=== PATIENT | female | born 1960 | race Caucasian/White ===

== ENCOUNTER → 2021-09-03 13:07 | Outpatient (CLI) | payer OTHER, SELFPAY ==
--- NOTE | ~2021-09-03 | DEXA_ITS ---
Bone Density Report Name: Maria G Pugh Age: 61 Sex: Female Ethnicity: White Date of : 1960 Indication: postmenopausal; screening for osteoporosis; height loss; Referring Provider: David, Yumiko Cordero Study: Bone densitometry was performed. Exam Date: September 03, 2021 Accession number: [id number] Bone Density: Region BMD T-score Z-score Classification AP Spine (L1-L4) 1.306 2.4 4.0 Normal Femoral Neck (Left) 0.672 -1.6 -0.2 Osteopenia Total Hip (Left) 0.875 -0.5 0.6 Normal World Health Organization criteria for BMD impression classify patients as: Normal (T-score at or above -1.0), Osteopenia (T-score between -1.0 and -2.5), or Osteoporosis (T-score at or below -2.5). 10-year Fracture Risk(1): Major Osteoporotic Fracture 8.1% Hip Fracture 0.8% Reported Risk Factors: [place] (), Neck BMD=0.672, BMI=34.3 (1) FRAX(R) Version 3.08. Fracture probability calculated for an untreated patient. Fracture probability may be lower if the patient has received treatment. Previous Exams: Region Exam Age BMD T-score BMD Change BMD Change Date g/cm2 vs Baseline vs Previous AP Spine(L1-L4) 09/03/2021 61 1.306 2.4 0.149* 0.149* 12/28/2010 50 1.157 1.0 Total Hip(Left) 09/03/2021 61 0.875 -0.5 -0.117* -0.117* 12/28/2010 50 0.992 0.4 *Denotes significance at 95% confidence level, LSC for AP Spine = 0.022 g/cm2, LSC for Total Hip = 0.027 g/cm2 Clinical Information Provided by Patient: Has used the following medications: Vitamin D Patient maximum height was 62 No regular weight bearing exercise Drinks caffeinated beverages Onset of menses at age 11 Number of children 1 Impression: The patient has low bone mass, based on the Left Femoral Neck T-score. The patient has an estimated ten-year risk of hip fracture of 0.8% and an estimated ten-year risk of major fracture of 8.1%, based on the WHO FRAX algorithm. The BMD for the Total Hip(Left) decreased, changing by -0.117 since the last DXA exam. Discussion: BONE DENSITY IS LOW AT ONE OR MORE SKELETAL SITES. This patient's lowest T-score is low at one or more skeletal sites. It meets the World Health Organization's (WHO) criteria for ?low bone mass? (T-score between -1.0 and -2.5). The patient's 10-year risk of fracture as calculated by FRAX is less than the threshold where pharmacological therapy is recommended by the National Osteoporosis Foundation (NOF). However, all treatment decisions require clinical judgment and
--- NOTE | ~2021-09-03 | MM_ITS ---
EXAMINATION: MM screening [facility] HISTORY: Screening TECHNIQUE: Craniocaudal and mediolateral oblique 3-D tomosynthesis images were obtained and synthetic 2-D images were generated. CAD analysis was submitted and interpreted. COMPARISON: Comparison to multiple prior studies sequentially, with oldest reviewed study dated 01/06. BREAST PARENCHYMAL COMPOSITION: There are scattered areas of fibroglandular density. FINDINGS: There is no evidence of suspicious mass, calcification, or architectural distortion to sugg est malignancy in either breast. There has been no suspicious interval change. IMPRESSION: 1. No mammographic evidence of malignancy. 2. Recommend routine screening mammography in one year. BI-RADS Category 1: Negative Reviewed, dictated and finalized at location A.
== END ==
PROVIDERS: PCP Family Medicine; Visit Provider Nurse Practitioner Obstetrics & Gynecology
DX: Z12.31 Encounter for screening mammogram for malignant neoplasm of breast (principal); M85.852 Other specified disorders of bone density and structure, left thigh
CPT/HCPCS: 77063; 77067; 77080

== ENCOUNTER → 2022-12-20 07:14 | Outpatient (CLI) | payer OTHER, SELFPAY ==
--- NOTE | ~2022-12-20 | MM_ITS ---
EXAMINATION: MM screening [facility] BI w kim HISTORY: Screening TECHNIQUE: Craniocaudal and mediolateral oblique 3-D tomosynthesis images were obtained and synthetic 2-D images were generated. CAD analysis was submitted and interpreted. COMPARISON: Comparison to multiple prior studies sequentially, with oldest reviewed study dated 01/06. BREAST PARENCHYMAL COMPOSITION: There are scattered areas of fibroglandular density. FINDINGS: There is no evidence of suspicious mass, calcification, or architectural distortion to sugg est malignancy in either breast. There has been no suspicious interval change. IMPRESSION: 1. No mammographic evidence of malignancy. 2. Recommend routine screening mammography in one year. BI-RADS Category 1: Negative Reviewed, dictated and finalized at location A. OR PEOPLESOFT DEVELOPER
== END ==
PROVIDERS: PCP Family Medicine; Visit Provider Nurse Practitioner Obstetrics & Gynecology
DX: Z12.31 Encounter for screening mammogram for malignant neoplasm of breast (principal)
CPT/HCPCS: 77063; 77067

== ENCOUNTER 2024-01-31 15:48 | Emergency (ER) | payer OTHER, SELFPAY ==
--- NOTE | ~2024-01-31 | XR_ITS ---
EXAMINATION: XR ribs LT 2V DATE: 01/31/2024 16:52 INDICATION: Low left anterior rib pain. Fall. TECHNIQUE: 2 views of the left ribs on 3 radiographs were obtained. COMPARISON: None. FINDINGS: There is no left-sided pneumonia, pleural effusion, or pneumothorax. The heart size is norm al. There is a moderate-sized hiatal hernia. IMPRESSION: 1. No rib fracture. 2. Moderate-sized hiatal hernia. Reviewed, dictated and finalized at location E. E CLERK
[2024-01-31 16:03] VITALS: BP 158/87; PULSE 72; RESP 16; TEMP 36.3; O2SAT 98
--- NOTE | 2024-01-31 16:30 | ED.GENADULT ---
HPI - General Adult General Chief complaint: Fall Stated complaint: front left side pain Time Seen by Provider: 01/31/24 16:28 Source: patient Mode of arrival: ambulatory Limitations: no limitations History of Present Illness HPI narrative: 63-year-old female presents with concern for left lower rib pain. Reports on Friday she was caring something at the store when she fell causing pain. Reports she has been using ice and ibuprofen, reports she was walking today and had a sharper pain. She reports initially she had swelling in that area, but is no longer swollen. She reports pain worsens with coughing, deep breathing. She denies vomiting, diarrhea, nausea MD complaint: Rib pain Related Data Home Medications Medication Instructions Recorded Confirmed Saccharomyces boulardii 250 mg 250 mg PO BID 04/16/23 01/31/24 capsule (Digest Probiotic (S.boulardii)) calcium carbonate 600 mg-vitamin 1 cap PO 04/16/23 D3 12.5 mcg (500 unit) capsule (Calcium 600 with Vitamin D3) omega 5-lik-wcu-fish oil 60 mg-90 1 cap PO DAILY 04/16/23 01/31/24 mg-500 mg capsule (Fish Oil) vitamin E (dl, acetate) 90 mg (200 90 mg PO DAILY 04/16/23 01/31/24 unit) capsule alprazolam 0.25 mg tablet 0.25 mg PO HS 01/31/24 01/31/24 metoprolol succinate 25 mg 25 mg PO DAILY 01/31/24 01/31/24 tablet,extended release 24 hr Allergies Allergy/AdvReac Type Severity Reaction Status Date / Time No Known Allergies Allergy Mild Verified 01/31/24 15:54 Review of Systems Review of Systems: CONSTITUTIONAL: Denies malaise, chills, sweats, or fever. CARDIOVASCULAR: Denies chest pain, palpitations, or edema. RESPIRATORY: Denies cough or dyspnea. Reports right rib pain GASTROINTESTINAL: Denies abdominal pain, nausea, vomiting, diarrhea, bloody, or mucous stools. GENITOURINARY: Denies dysuria or hematuria. SKIN: Denies rash or itching, bruising. MUSCULOSKELETAL: Denies back pain, joint pain, or myalgia. All systems reviewed & are unremarkable except as noted in HPI and below PMFSH Past Medical History Medical History Anxiety Hypertension Migraine Family History Family History (Updated 04/16/23 @ 09:39 by Tamar Lockhart CMA) Mother Heart disease Diabetes mellitus Father No problems noted. Social History Social History (Updated 04/16/23 @ 09:48 by Tamar Lockhart CMA) Smoking status: Never smoker Second hand tobacco smoke exposure: No Alcohol intake: current Drinks per week: 2 Substance use: never Substance use type: does not use Lack of Transportation: No Lack of Food: Never True Current Housing: I Have Housing Concerned About Future Housing: No Difficulty Paying Gas/Electric Bills: No Difficulty Paying for Meds: No Currently Unemployed: No Education: High School Diploma/GED Difficulty w/ Childcare or Family Care: No Comments At time of signature, agree with nursing past medical, surgical, social and family history. There is no relevant family history pertinent to the presenting complaint Exam Narrative: GENERAL: Well-appearing, well-nourished, and in no acute distress. HEAD: Normocephalic, atraumatic. EYES: PERRLA, sclera clear, ENT: Nares clear. Mucous membranes moist. NECK: Supple. CHEST: No respiratory distress. Clear to auscultation. No bony deformities, no asymmetry. Speaks in full sentences. Left anterior rib pain HEART: Regular rate and rhythm. No murmur heard. Normal peripheral pulses. ABDOMEN: Soft, nontender, nondistended, normal active bowel sounds, no palpable masses. EXTREMITIES: Normal range of motion. No edema. Normal strength and sensation. SKIN: Warm, dry, no visible rash. NEURO: Alert and oriented x3. PSYCH: Normal mood and affect Course Course Emergency Course: Patient is aware of diagnosis, understands and agrees to treatment plan. Anticipatory guidance g
== END 2024-01-31 17:21 | disposition home or self-care (01) ==
PROVIDERS: Emergency Provider Nurse Practitioner; PCP Internal Medicine
DX: R07.81 Pleurodynia (principal); I10 Essential (primary) hypertension; F41.9 Anxiety disorder, unspecified
CPT/HCPCS: 71100; 99213; G0463

== ENCOUNTER 2024-10-27 12:20 | Outpatient (CLI) | payer MEDICARE, OTHER, SELFPAY ==
--- NOTE | ~2024-10-27 | MM_ITS ---
EXAMINATION: MM screening [facility] BI w kim HISTORY: Screening TECHNIQUE: Craniocaudal and mediolateral oblique 3-D tomosynthesis images were obtained and synthetic 2-D images were generated. CAD analysis was submitted and interpreted. COMPARISON: Comparison to multiple prior studies sequentially, with oldest reviewed study dated 03/2015. BREAST PARENCHYMAL COMPOSITION: Not Dense: The breasts are almost entirely fatty. FINDINGS: There is no evidence of suspicious mass, calcification, or architectural distortion to sugg est malignancy in either breast. There has been no suspicious interval change. IMPRESSION: 1. No mammographic evidence of malignancy. 2. Recommend routine screening mammography in one year. BI-RADS Category 1: Negative Reviewed, dictated and finalized at location B. FIRER
== END 2024-10-27 12:21 | disposition home or self-care (01) ==
LOC: MICIMG 12:22
PROVIDERS: PCP Obstetrics & Gynecology; Visit Provider Obstetrics & Gynecology
DX: Z12.31 Encounter for screening mammogram for malignant neoplasm of breast (principal)
CPT/HCPCS: 77063; 77067

== ENCOUNTER 2025-01-12 00:59 | Day surgery (SDC) | payer MEDICARE, OTHER, SELFPAY ==
[2025-01-04 15:25] VITALS: BMI 33.0
--- OUTSIDE RECORDS SUMMARY | 2025-01-12 01:01 | XMS_ITS ---
Author Organization [facility] Address [address] [place], [place] [id number] Care Team Providers Care Circular Saw Operator Name Role Phone XAIVER LOCKETT Unavailable [phone] Kimmy Lara Unavailable Unavailable AARON IVEY Unavailable [phone] REASON FOR VISIT cortisone shot l ft Medications Medication SIG (Take, Route, Frequency, Duration) Notes Start Date End Date Status Medrol Dosepak ORAL Medrol DosepakOr iginal MedicationMedrol Dosepak *Reorder from [facility] for eRx and Interaction Alerts* 04/24/2020 Active sumatriptan 100 MG Oral Tablet ORAL sumatriptan 100 MG Oral TabletOriginal Medicationsumatriptan 100 MG Oral Tablet *Reorder from [facility] for eRx and Interaction Alerts* 04/24/2020 Active Cephalexin 500 MG 1 capsule Orally three times a day for 7 days Active ALPRAZolam 0.25 MG Oral Tablet ORAL alprazolam 0.25 MG Oral TabletOriginal Medicationalprazolam 0.25 MG Oral Tablet *Reorder from [facility] for eRx and Interaction Alerts* 04/24/2020 Active Metoprolol Tartrate 25 MG Oral Tablet ORAL metoprolol tartrate 25 MG Oral TabletOriginal Medicationmetoprolol tartrate 25 MG Oral Tablet *Reorder from [facility] for eRx and Interaction Alerts* 04/24/2020 Active Vital Signs Height 61.00 in 02/09/2024 Weight 180 lbs 02/09/2024 BMI 34.01 kg/m2 02/09/2024 Height-cm 154.94 cm 02/09/2024 Weight-kg 81.65 kg 02/09/2024 Encounters Encounter Location Date Provider Diagnosis [facility] [place] [address] [facility] [address] [place], [place] [id number] 02/09/2024 AARON IVEY Localized edema R60.0 ; Primary osteoarthritis, left ankle and foot M19.072 ; Pain in left ankle and joints of left foot M25.572 ; Flat foot [pes planus] (acquired), left foot M21.42 and Left foot pain M79.672 Assessments Encounter Date Diagnosis (ICD Code) Assessment Notes Treatment Notes Treatment Clinical Notes Section Notes 02/09/2024 Localized edema (ICD-10 - R60.0) 02/09/2024 Primary osteoarthritis , left ankle and foot (ICD-10 - M19.072) Arthritis, Osteo: I discussed anti-inflammatory treatment options and various means of immobilization with the patient. I educated the patient on icing and stretching, supportive shoegear, and the use of orthotic devices and bracing. Following skin prep, a total of 3 ccs of a 1.5-1-0.5 mix of 1% lidocaine plain, dexamethasone sodium phosphate and kenalog was injected into the patients left sinus tarsi. 02/09/2024 Pain in left ankle and joints of left foot (ICD-10 - M25.572) 02/09/2024 Flat foot [pes planus] (acquired), left foot (ICD-10 - M21.42) Patient educated on etiology and treatment options for flexible flat foot deformity. Educated patient on how a flexible flat foot deformity can in turn result in pathology such as hammer toe, bunions, equinus, neuromas. Recommend use of custom foot inserts to help alleviate plantar peak pressures and accomodate for digital deformity to feet. 02/09/2024 Left foot pain (ICD-10 - M79.672) Plan Of Treatment Treatment Notes Assessment Notes Primary osteoarthritis, left ankle and foot Arthritis, Osteo: I discussed anti-inflammatory treatment options and various means of immobilization with the patient. I educated the patient on icing and stretching, supportive shoegear, and the use of orthotic devices and bracing. Following skin prep, a total of 3 ccs of a 1.5-1-0.5 mix of 1% lidocaine plain, dexamethasone sodium phosphate and kenalog was injected into the patients left sinus tarsi. Flat foot [pes planus] (acqu ired), left foot Patient educated on etiology and treatme nt options for flexible flat foot deformity. Educated patient on how a flexible flat foot deformity can in turn result in pathology such as hammer toe, bunions, equinus, neuromas. Recommend use of custom foot inserts to help alleviate plantar peak pressures and accomodate for digital deformity to feet. Next Appt Details Follow Up: prn, Reason: Progress Notes * DEBBI PÉREZDOB: [birth year] (63 yo F)Acc No.[id number]:02/09/2024 Patient: DEBBI MADRIGAL Provider: Carlos IVEY :1960 A ge:63 Y S ex:Female Date:02/09/2024 Address:[address] [place] [address] Subjective: * Chief Complaints: * 1 . Cortisone shot l ft. * HPI: H PI: New Complaint E stablished patient presents with a new complaint. P atient complains of an issue to left foot pain. Patient states the pain is on the lateral side of the ankle. Patient has been treated for this in the past. Patient states she would like an injection to help with the pain. D uration of problem is 5 months. P atient denies any injury. M A:SS. * ROS: G eneral / Constitutional: Patient denies c hills, fever, weakness, night sweats. M usculoskeletal: Patient denies c hildhood foot problems, weakness. P atient complains of f mehnaz arch, joint pain, pain with walking and working, orthotic use. ? P eripheral Vascular: Patient denies u lceration of feet, cold extremities. ? S kin: Patient denies u lcerations, discoloration. ? N eurologic: Patient denies b alance difficulty, confusion, difficulty speaking, dizziness. * Medical History: * Family History: F ather: PRN - Father: . M other: PRN - Mother: . * Medications: T aking ALPRAZolam 0.25 MG Oral Tablet ORAL , Notes to Pharmacist: alprazolam 0.25 MG Oral TabletOriginal Medicationalprazolam 0.25 MG Oral Tablet *Reorder from [facility] for eRx and Interaction Alerts*, Taking Metoprolol Tartrate 25 MG Oral Tablet ORAL , Notes to Pharmacist: metoprolol tartrate 25 MG Oral TabletOriginal Medicationmetoprolol tartrate 25 MG Oral Tablet *Reorder from [facility] for eRx and Interaction Alerts*, Taking Medrol Dosepak ORAL , Notes to Pharmacist: Medrol DosepakOriginal MedicationMedrol Dosepak *Reorder from [facility] for eRx and Interaction Alerts*, Taking sumatriptan 100 MG Oral Tablet ORAL , Notes to Pharmacist: sumatriptan 100 MG Oral TabletOriginal Medicationsumatriptan 100 MG Oral Tablet *Reorder from [facility] for eRx and Interaction Alerts*, Taking Cephalexin 500 MG Capsule 1 capsule Orally three times a day Objective: * Vitals: W t:180lbs, Wt-k.65 kg, Ht: 61.00 in, Ht-cm: 154.94 cm, BMI:34.01Index, Body Surface Area: 1.87. * Examination: P hysical Examination: V ascular: Dorsalis Pedis pulse 2/4 left foot Posterior Tibial pulse 2/4 left foot Dorsalis Pedis pulse 2/4 right foot Posterior Tibial pulse 2/4 right foot, Capillary Refill Time is noted to be less than 3 secs to ten digits, temperature gradient is warm to cool to bilateral lower extremity and pedal hair present, non pitting edema noted over lateral aspect of ankle joint left Dermatologic: there are no open lesions, no signs of active clinical infection, no erythema noted, no ecchymoses, nails are at hygienic length during todays visit Neurology: protective sensation intact to light touch bilateral digits one through five, vibratory sensation intact to first metatarsophalangeal joint bilaterally Musculoskeletal: pain to palpation sinus tarsi left foot, mild pain to palpation ATFL left ankle, no pain along anterior ankle joint line, no pain noted to styloid process fifth metatarsal left foot, no pain along course of peroneal tendons left ankle, no pain with anterior drawer test or talar tilt test left ankle. Assessment: * Assessment: 1. L ocalized edema - R60.0 (Primary) 2 . P rimary osteoarthritis, left ankle and foot - M19.072 3 . P ain in left ankle and joints of left foot - M25.572 4 . F lat foot [pes planus] (acquired), left foot - M21.42 5 . L eft foot pain - M79.672 Plan: * Treatment: 2. F lat foot [pes planus] (acquired), left foot Notes: Patient educated on etiology and treatment options for flexible flat foot deformity. Educated patient on how a flexible flat foot deformity can in turn result in pathology such as hammer toe, bunions, equinus, neuromas. Recommend use of custom foot inserts to help alleviate plantar peak pressures and accomodate for digital deformity to feet. * Procedure Codes: 2 0605 DRAIN/INJECT, JOINT/BURSA, Modifiers: LT * Follow Up: p rn * Billing Information: * Visit Code: 16146 Office Visit, Est Pt., Level 3. Modifiers: 25 * Procedure Codes: 26855 DRAIN/INJECT, JOINT/BURSA. Modifiers: LT * Sign off status: Completed true * Provider: Carlos IVEY Date: 0 02/09/2024 Generated for Kaushal calvert/Mary/Erin on: 0 01/12/2025 01:01 AM REGIONAL ECONOMIST History and Physical Notes * HPI (History of Present Illness) Category Sub-Category Detail Notes Category Not es HPI New Complaint Established hernandez ent presents with a new complaint.Patient complains of an issue to left foot pain. Patient states the pain is on the lateral side of the ankle. Patient has been treated for this in the past. Patient states she would like an injection to help with the pain. Duration of problem is 5 months. Patient denies any injury. MA:SS Examination Category Sub-Category Detail Notes Category Not es Physical Examination Vascular: Dorsalis Pedis pulse 2/4 left foot Posterior Tibial pulse 2/4 left foot Dorsalis Pedis pulse 2/4 right foot Posterior Tibial pulse 2/4 right foot, Capillary Refill Time is noted to be less than 3 secs to ten digits, temperature gradient is warm to cool to bilateral lower extremity and pedal hair present, non pitting edema noted over lateral aspect of ankle joint left Dermatologic: there are no open lesions, no signs of active clinical infection, no erythema noted, no ecchymoses, nails are at hygienic length during todays visit Neurology: protective sensation intact to light touch bilateral digits one through five, vibratory sensation intact to first metatarsophalangeal joint bilaterally Musculoskeletal: pain to palpation sinus tarsi left foot, mild pain to palpation ATFL left ankle, no pain along anterior ankle joint line, no pain noted to styloid process fifth metatarsal left foot, no pain along course of peroneal tendons left ankle, no pain with anterior drawer test or talar tilt test left ankle
--- OUTSIDE RECORDS SUMMARY | 2025-01-12 01:02 | XMS_ITS ---
Author Organization [facility] Address [address] [place], [place] [id number] Care Team Providers Care Abattoir Manager Name Role Phone XAVIER LOCKETT Unavailable [phone] Kimmy Lara Unavailable Unavailable Encounters Encounter Location Date Provider Diagnosis [facility] [address] [place], [place] [id number] 02/04/2024 XAVIER LOCKETT Plan Of Treatment No Information Progress Notes * DEBBI PÉREZDOB: [birth year] (63 yo F)Acc No.[id number]:02/04/2024 Patient: DEBBI MADRIGAL :1960 A ge:63 Y S ex:Female Address:[address] [place] [address], [address] * true * Date: Generated for Kaushal calvert/Mary/eTmarcinsmitting on: 0 01/12/2025 01:02 AM DIRECTOR OF CLINICAL SERVICES
--- OUTSIDE RECORDS SUMMARY | 2025-01-12 01:02 | XMS_ITS | Encounter Summary ---
Author Organization [facility] Address [address] [place] [address] Care Team Providers Care Manager Mutual Fund Name Role Phone Kimmy Lara MD Primary Care Provider [phone] Encounter Details Date Type Department Care Team (Late st Contact Info) Description 04/15/2024 Lab Requisition [facility] - DermPath Lab [address] [place] [address] Iris Stover DO [address] [facility] [address] [place] [address] Social History Tobacco Use Types Packs/Day Years Used Date Smoking Tobacco: Never Assessed Sex and Gender Information Value Date Recorded Sex Assigned at Not on file Gender Identity Not on file Sexual Orientation Not on file documented as of this encounter Plan of Treatment Not on file documented as of this encounter Procedures Procedure Name Priority Date/Time Associated Diagnosis Comments DERMATOPATHOLOGY Routine 04/15/2024 8:52 AM CDT documented in this encounter Results * DERMATOPATHOLOGY (04/15/2024 8:52 AM CDT) Case Report Dermatopathology Report Case: [id number] Authorizing Provider: Iris Stover DO Collected: 04/15/2024 08:52 AM Ordering Location: [facility] - Received: 04/16/2024 10:37 AM DermPath Lab Pathologist: Mayda Rosales MD Specimen: Skin, left forearm 11:55 AM CDT DERMATOPATHOLOGY LABORATORY Final Diagnosis Specimen A. SKIN, left forearm: NON-INFLAMMATORY PURPURA (D69.2) (see microscopic description and comment) 11:55 AM T DERMATOPATHOLOGY LABORATORY Clinical History R/O NMSC 11:55 AM T DERMATOPATHOLOGY LABORATORY Gross Description Specimen A: Received is one formalin filled container labeled with the patient's name and designated left forearm. The specimen consists of a shave biopsy measuring 7x6x1 mm. Jar 0. 11:55 AM T DERMATOPATHOLOGY LABORATORY Microscopic Description Specimen A. SKIN, left forearm: Sections show extravasation of red blood cells into the dermis from small cutaneous vessels. No associated inflammation is present in the vessel shafer however an associated neutrophilic infiltrate is present within the dermis.. COMMENT: These histological findings are consistent with a non-inflammatory purpura, which include idiopathic thrombocytopenic purpura, senile purpura, psychogenic purpura, traumatic purpura, and drug purpuras. Clinicopathologic correlation is recommended. 11:55 AM T DERMATOPATHOLOGY LABORATORY Disclaimer An external and internal positive and negative controls are appropriate for the histochemical, immunohistochemical and immunofluorescence stain(s) in this case (if any), except where stated explicitly. The performance characteristics of the stain(s) cited in this report were developed and its performance characteristic determined by the Dermatopathology Laboratory at [facility], directed by Dr. Eva Hess. These tests need not be, and therefore are not, approved by the [place] Food and Drug Administration. The tests are used for clinical purposes. Billing Codes Specimen Charges Stain Charges 85543 1 11:55 AM CDT DERMATOPATHOLOGY LABORATORY Embedded Images 11:55 AM CDT DERMATOPATHOLOGY LABORATORY Pathology/Cytolo gy TISSUE SPECIMEN FROM SKIN / Unknown 04/15/2024 8:52 AM CDT 04/16/2024 10:37 AM CDT Iris Stover DO LAB - PATHOLOGY/C YTOLOGY ORDERABLES DERMATOPATHOLOGY LABORATORY [facility] - Department of Dermatology [address] [phone] documented in this encounter Visit Diagnoses Not on filedocumented in this encounter Care Teams Manager Mutual Fund Relationship Specialty Start Date End Date Kimmy Lara MD [address] [place] [address] PCP - General 01/22/21 documented as of this encounter
--- OUTSIDE RECORDS SUMMARY | 2025-01-12 01:02 | XMS_ITS | Clinical Summary ---
Author Organization [facility] Address [address] [place] [address] Care Team Providers Care Postal Transportation Clerk Name Role Phone Kimmy Lara MD Primary Care Provider [phone] Source Comments [facility],non-owned Affiliates and Associated Physician Practices is amultiple site organization consisting of ambulatory clinics and hospital sitesin [place], [place], [place] and [place]. This disclosure is being madepursuant to the Care Everywhere program and may not contain all information available regarding this patient. Last updated 18.[facility] Social History Tobacco Use Types Packs/Day Years Used Date Smoking Tobacco: Never Assessed Sex and Gender Information Value Date Recorded Sex Assigned at Not on file Gender Identity Not on file Sexual Orientation Not on file Plan of Treatment Health Maintenance Due Date Last Done Comments BONE DENSITY TESTING 1958 COLOGUARD (AGES 45-75) - COL ON CA SCREENING 1958 COLON MONITORING 1958 COLONOSCOPY - COLON CA SCREENING 1958 CT COLONOGRAPHY - COLON CA SCREENING 1958 Colorectal Cancer Screening 1958 FIT - COLON CA SCREENING 1958 FLEX SIG - COLON CA SCREENING 1958 LIPID TESTING 1958 MAMMOGRAM 1958 HEPATITIS C SCREENING 05/15/1976 DTAP/TDAP/TD VACCINES (1 - Tdap) 1977 PNEUMOCOCCAL VACCINE 50+ (1 of 1 - PCV) 2008 ZOSTER VACCINE (1 of 2) 2008 COVID-19 VACCINE (1 - 2023-2 5 season) 2024 INFLUENZA VACCINE (#1) 2024 DEPRESSION SCREENING 11/24/2024 Respiratory Syncytial Virus (RSV) Vaccine Pt: or over 60 yrs (1 - 1-dose 75+ series) 2033 HEPATITIS B VACCINE Aged Out No longe r eligible based on patient's age to complete this topic HIB VACCINE Aged Out No longer eligi ble based on patient's age to complete this topic HPV VACCINE Aged Out No longer eligi ble based on patient's age to complete this topic MENINGOCOCCAL (Group B) VACCINE Aged Out No longer eligible based on patient's age to complete this topic MENINGOCOCCAL VACCINE Aged Out No maribel davy eligible based on patient's age to complete this topic Care Teams Postal Transportation Clerk Relationship Specialty Start Date End Date Kimmy Lara MD [address] [place] [address] PCP - General 01/22/21
--- OUTSIDE RECORDS SUMMARY | 2025-01-12 01:02 | XMS_ITS | Clinical Summary ---
Author Organization [facility] Care Team Providers Care Biology Instructor Name Role Phone Unavailable Primary Care Provider Unavailabl e Social History Tobacco Use Types Packs/Day Years Used Date Smoking Tobacco: Never Assessed Comments Unknown Sex and Gender Information Value Date Recorded Sex Assigned at Not on file Legal Sex Female 12:30 AM CDT Gender Identity Not on file Sexual Orientation Not on file Plan of Treatment Not on file
--- OUTSIDE RECORDS SUMMARY | 2025-01-12 01:02 | XMS_ITS | Continuity of Care Document ---
Author Organization [facility] [place] Address [address] [place] [address] Phone Care Team Providers Care Fuse Spooler Name Role Phone Diamond Acosta MD Unavailable Unavailable Allergies, Adverse Reactions, Alerts Substance Reaction Status Criticality No Known Allergies Active No Inform ation Medications Medication Instructions Dosage Effective Dates (start - stop) Status Comments ALPRAZOLAM 0.25MG TABLETS TAKE 1 TABLET BY MOUTH AT BEDTIME NEEDED FOR INSOMNIA - Active metoprolol succinate ER 25 mg tablet,extended release 24 hr take 1 tablet by oral route every day 25 MG - Active sumatriptan 100 mg tablet take 1 tablet by oral route after onset of migraine; may repeat after 2 hours if headache returns,not to exceed 200mg in 24hrs as needed 100 MG - Active calcium citrate 315 mg-vitamin D3 5 mcg (200 unit) tablet take 1 tablet by oral route every day 1 tablet - Active Probiotic 15 billion cell capsule take 1 capsule daily - Active turmeric 400 mg capsule take 1 capsule daily - Active biotin 2,500 mcg capsule take 1 capsule daily - Active Prilosec OTC 20 mg tablet,delayed release take 1 tablet daily - Active Vitamin B-12 1,000 mcg tablet take 1 tablet by oral route every day 1 tablet - Active vitamin E 268 mg (400 unit) capsule take 1 capsule by oral route 2-3 times per week - Active Fiber-Caps (psyllium husk) 0.52 gram capsule take 1-2 capsules daily - Active Fruit and Vegetable Daily 5 mg-6 mg-150 mg capsule take 1 capsule daily - Active Procedures Procedure Date Pt inelig neg scrn depres FALL RISK ASSESSMENT DOC'D PRES/ABSN URINE INCON ASSESS EKG (ELECTROCARDIOGRAM) INIT PREVENT PHYS EXAM; LIMITED TO NEW B ENEFICIARY SYST BP GE 130 - 139MM HG DIAST BP 80-89 MM HG ELECTROCARDIOGRAM ECG WITH 12 LEADS INTE RP AND RPT CBC, INC PLATELETS AND DIFFERENTIAL COMPREHEN METABOLIC PANEL CMP 5 LIPID PANEL ROUTINE VENIPUNCTURE TN Pt inelig neg scrn depres OFFICE SIITS-HEC-XRXTYESI Visit Complexity Inherent To E/M 2023 SYST BP LT 130 MM HG DIAST BP < 80 MM HG CBC, INC PLATELETS AND DIFFERENTIAL COMPREHEN METABOLIC PANEL CMP 4 LIPID PANEL ROUTINE VENIPUNCTURE TN PREVENTATIVE-NEW: 65& OVER IMMUN ADMIN (INC PERCUTANEOUS) SINGLE, F IRST INJ Pneumococcal Conjugate Vaccine (PCV20) J Advance Directives Directive Yes / No Effective Date File Name Other Directive No N/A N/A WARNING:The information contained in this section is historical and is provided for information only and does not constitute a legal document or any assurance that the information is still accurate. Please verify the information with the caputo of the legal document before using it for clinical purposes. Encounters Encounter Description Practice Location Reason(s) For Visit Diagnoses Date Provider Providers Copied on Encounter [facility], [address], [place], [place], [address] , tel: [phone] [facility] Medicare preventive (chief complaint)C hronic Conditions (chief complaint) Body mass index [BMI] 33.0-33.9, adultEncntr for general adult medical exam w/o abnormal findingsMigraine without status migrainosus, not intractable, unspecified migraine typeBenign essential hypertension [address]. [address] [place], [place], [address] , [place]. tel: [phone] Referring Provider: Diamond Day, [address] [place], [address] . tel:[phone] [facility], [address], [place], [place], [address] , tel: [phone] [facility] No Information [address] J[address] [place] [address], [id number] , . tel: [phone] Referring Provider: Diamond Day, [address] [place], [address] . tel:[phone] [facility], [address], [place], [place], [address] , [place] tel: [phone] [facility] Benign essential hypertensionHyperl ipidemia LDL goal <100 [address], [place], [address] , [place]. tel: [phone] Referring Provider: Diamond Day, [address] [place], [address] . tel:[phone] [facility], [address], [place], [place], [address] , tel: [phone] [facility] Encounter for screening colonoscopy [address]. [address], [address] , [place]. tel: [phone] [facility], [address], [place], [place], [address] , tel: [phone] [facility] [employer] [facility] No Information [address]. [address], [place], [address] , [place]. tel: [phone] OFFICE [id number]-Y[facility], [address], [place], [place], [address] , [place] tel: [phone] [facility] Chronic Conditions (chief complaint) Body mass index [BMI] 32.0-32.9, adultMigraine without status migrainosus, not intractable, unspecified migraine typePrimary insomniaBenign essential hypertensionTinnit us, bilateral [address]. [address] [place], [place], [address] , [place]. tel: [phone] Referring Provider: Diamond Day, [address] [place], [address] . tel:[phone] [facility] [employer] [place], [address], [place], [place], [address] , [place] tel: [phone] [facility] No Information [address], [address] , [place]. tel: [phone] [facility], [address], [place], [place], [address] , [place] tel: [phone] [facility] No Information [address]. [address], [id number] , [place]. tel: [phone] Referring Provider: Diamond Day, [address] [place], [address] . tel:[phone] [facility] [place], [address], [place], [place], [address] , [place] tel: [phone] [facility] Benign essential hypertensionRoutin e medical exam [address]. [address], [place], [address] , . tel:[phone] Referring Provider: Diamond Day, [address] [place], [address] . tel:[phone] PREVENTATIVE -NEW: 65& OVER [facility], [address], [place], [place], [address] , [place] tel: [phone] [facility] pt (chief complaint) Body mass index [BMI] 32.0-32.9, adultRoutine medical examBenign essential hypertensionMigrai ne without status migrainosus, not intractable, unspecified migraine typePrimary insomniaColon cancer screening [address], [place], [address] , . tel: [phone] Referring Provider: Diamond Day, [address] [place], [address] . tel:[phone] Family History Family Member Type Diagnosis Age At Onset Father Problem Hypertension Mother Problem Kidney disease Sister Problem Hypertension Mother Problem Hypertension Father Problem Hearing loss Mother Problem Cancer, breast Father Problem Hypercholesterolemia Mother Problem Hypercholesterolemia Father Problem Cancer, colon Mother Problem Diabetes mellitus Immunizations Vaccine Date Status Comments Pneumococcal conjugate PCV20 administered Source: New Immunization Record Payers Payer name Insurance type Covered libertarian ID Authoriza timatt(s) [place]IC[place] [id number] [facility] [id number] [facility] [id number] Social History Type Description Quantity Date Captured Comments Alcohol Use Details beer & wine Caffeine Use Details Unknown Tobacco Use Status Current non-smoker Smoking Status Never smoker Non-Smoking Tobacco Use Details : No Details Available : No Details Available Sex Female Sexual Orientation Straight or heterosexual Gender Identity Female Vital Signs Date / Time: Height Weight BMI Pulse Rate Blood Pressure Temperature Respiratory Rate Body Surface Area Head Circumference Head Circ. Percentile Wt./Asif. Percentile BMI percentile Pulse Ox Inhaled Ox 2:28 PM 60.50 in 79.742 kg (175.80 lbs) 33.7 7 kg/m eter (2) 60 /min 132/86 mm[Hg] Chief Complaint And Reason For Visit From encounter dated '01/03/2025 14:30'. Medicare preventive (chief complaint). Description: A Health Risk Assessment has been performed andreviewed. The patient has not felt depressed and has had interest and pleasure doing things recently. Functional Status: (Functional status has not changed) on 01/03/2025. Cognitive Status: (Cognitive status has not changed) on 01/03/2025. The ''Up and Go'' test tookless than 30 seconds andthe patient does not need help with activities of daily living. The patientis not at risk for falls. The patient has not fallen in the last year. The fall(s) did not result in injury. The patient has smoke detectors in the home. The patient does not have carbon monoxide detectors in the home. Patient reports using a seatbelt in vehicles. Relevant history is positive for alcohol use. Relevant history is negative for tobacco use. Chronic Conditions (chief complaint). Description: *See Chronic Conditions HPI Reason For Referral Reason For Referral No Information Plan Of Treatment Date Type Action Status Goal Dietary manageme nt education, guidance, and counseling completed Goal Dietary manageme nt education, guidance, and counseling completed Goal Dietary manageme nt education, guidance, and counseling completed Referral Ordered: EKG (ELECTROCARDIOGRAM) ordered Referral Referred To: [address] [place], [phone] Ordered: DEXA of spine and hip ordered Referral Ordered: Ronn Weston MD -Gastroenterology (related to Encounter for screening colonoscopy) ordered Referral Referred To: Ronn Weston MD [address] [place], [phone] Ordered: Referrals: Gastroenterology. Ronn Weston MD. Evaluation/diagnostic/treatment - Level 3 ordered Referral Ordered: Ronn Melissa DO -Gastroenterology (related to Colon cancer screening) ordered Referral Referred To: Ronn Melissa DO [address] [place], [phone] Ordered: Referrals: Gastroenterology. Ronn Melissa DO. Evaluation/diagnostic/treatment - Level 3 ordered Appointment Maria G Pugh BOOKED Appointment Maria G Pugh BOOKED History Of Present Illness Encounter Date Complaint History Of Prese nt Illness Medicare preventive A Health Ris k Assessment has been performed and reviewed. The patient has not felt depressed and has had interest and pleasure doing things recently. Functional Status: (Functional status has not changed) on 01/03/2025. Cognitive Status: (Cognitive status has not changed) on 01/03/2025. The ''Up and Go'' test took less than 30 seconds andthe patient does not need help with activities of daily living. The patient is not at risk for falls. The patient has not fallen in the last year. The fall(s) did not result in injury. The patient has smoke detectors in the home. The patient does not have carbon monoxide detectors in the home. Patient reports using a seatbelt in vehicles. Relevant history is positive for alcohol use. Relevant history is negative for tobacco use. Chronic Conditions *See Chronic Conditions HPI Chronic Conditions *See Chronic Conditions HPI New pt Pt. here to get established. Due for mammogram and colonoscopy.Sees heater installer for pap smears.Has HTN with BP stable on metoprolol without SE's.Has migraines stable- takes imitrex as needed with improvement in headache pain,Has insomnia chronic and has taken xanax intermittently in the past which helps her fall asleep. Functional Status Date Functional Assessmen t No Information Instructions Date Instruction Additional Infor mation Continue metoprolol Related to B enign essential hypertension EKG done today as pa rt of Welcome to Medicare visit normalContinue yearly mammogramsDeXA hip and spine bone density study orderedtry to do some regular exercisecontinue pap smears with your marketing reps [facility] [place] your [facility]oscopy as scheduled later this monthfollow up in 1 year Related to Encntr for general adult medical exam w/o abnormal findings continue sumatriptan as needed R elated to Migraine without status migrainosus, not intractable, unspecified migraine type Immunizations Dietary management e ducation, guidance, and counseling Related to Body mass index (BMI) 33.0-33.9, adult continue sumatriptan as needed R elated to Migraine without status migrainosus, not intractable, unspecified migraine type continue low dose xa nax to take on rare occasions as needed Related to Primary insomnia Continue metoprolol Related to B enign essential hypertension Dietary management e ducation, guidance, and counseling Related to Body mass index (BMI) 32.0-32.9, adult recommend using over the counter Flonase 2 sprays per nostril dailyIf your symptoms do not improve after 1 to 2 months, let us know and we can refer you to an ENT or start on low dose amitriptyline at bedtime Related to Tinnitus, bilateral will send rx. for lo w dose xanax to take on rare occasions as needed Related to Primary insomnia Continue metoprolol Related to B enign essential hypertension continue sumatriptan as needed R elated to Migraine without status migrainosus, not intractable, unspecified migraine type Prevnar 20 given tod ayArethaule your screening mammogram you are due fortry to do some regular exercisecontinue pap smears with your gynecologistrefer to Dr. Melissa [facility] for colonoscopyfollow up in 6 months Related to Routine medical exam Dietary management e ducation, guidance, and counseling Related to Body mass index (BMI) 32.0-32.9, adult Immunizations Assessments Type Assessment Date assessment Body mass index (BMI) 33.0-33.9, adult assessment Encntr for general adult medical exam w/o abnormal findings assessment Migraine without sta tus migrainosus, not intractable, unspecified migraine type assessment Benign essential hypertension Mental Status Date Cognitive Assessment Orientation - Osc[place] ed to time, place, person, situation. Patient Care Teams Name Effective Dates (start - stop) Status Members No Information
--- OUTSIDE RECORDS SUMMARY | 2025-01-12 01:02 | XMS_ITS | Patient Health Summary ---
Author Organization [facility] Address [address] [place] [address] Care Team Providers Care Furnace Builder Name Role Phone Kimmy Lara MD Primary Care Provider [phone] Note from [facility],non-owned Affiliates and Associated Physician Practices is amultiple site organization consisting of ambulatory clinics and hospital sitesin [place] and [place]. This disclosure is being madepursuant to the Care Everywhere program and may not contain all information available regarding this patient. Last updated 18.[facility] Social History Tobacco Use Types Packs/Day Years Used Date Smoking Tobacco: Never Assessed Sex and Gender Information Value Date Recorded Sex Assigned at Not on file Gender Identity Not on file Sexual Orientation Not on file Procedures * DERMATOPATHOLOGY(Performed 04/15/2024) * DERMATOPATHOLOGY(Performed 08/06/2021) * DERMATOPATHOLOGY(Performed 02/12/2021) * DERMATOPATHOLOGY(Performed 01/22/2021) Results * DERMATOPATHOLOGY (04/15/2024 8:52 AM CDT) Only the most recent of4 resultswithin the time period is included. Case Report Dermatopathology Report Case: [id number] Authorizing Provider: Iris Stover DO Collected: 04/15/2024 08:52 AM Ordering Location: [facility] - Received: 04/16/2024 10:37 AM DermPath Lab [...] characteristic determined by the Dermatopathology Laboratory at [facility], directed by Dr. Eva Hess. These tests need not be, and therefore are not, approved by the [place] Food and Drug Administration. The tests are used for clinical purposes. Billing Codes Specimen Charges Stain Charges 96634 1 11:55 AM CDT DERMATOPATHOLOGY LABORATORY Embedded Images 11:55 AM CDT DERMATOPATHOLOGY LABORATORY Pathology/Cytolo gy TISSUE SPECIMEN FROM SKIN / Unknown 04/15/2024 8:52 AM CDT 04/16/2024 10:37 AM CDT Iris Stover DO LAB - PATHOLOGY/C YTOLOGY ORDERABLES DERMATOPATHOLOGY LABORATORY [facility] - Department of Dermatology [address] [phone] Care Teams Furnace Builder Relationship Specialty Start Date End Date Kimmy Lara MD [address] [place] [address] PCP - General 01/22/21
--- OUTSIDE RECORDS SUMMARY | 2025-01-12 01:02 | XMS_ITS | Referral Summary ---
Author Organization [facility] Address [address] [place] [address] Care Team Providers Care Director Of Campus Recreation Name Role Phone Kimmy Lara MD Primary Care Provider [phone] Source Comments [facility],non-owned Affiliates and Associated Physician Practices is amultiple site organization consisting of ambulatory clinics and hospital sitesin [place], [place], [place] and [place]. This disclosure is being madepursuant to the Care Everywhere program and may not contain all information available regarding this patient. Last updated 18.[facility] [employer] Social History Tobacco Use Types Packs/Day Years Used Date Smoking Tobacco: Never Assessed Sex and Gender Information Value Date Recorded Sex Assigned at Not on file Gender Identity Not on file Sexual Orientation Not on file Plan of Treatment Not on file Care Teams Director Of Campus Recreation Relationship Specialty Start Date End Date Kimmy Lara MD [address] [place] [address] PCP - General 01/22/21
--- OUTSIDE RECORDS SUMMARY | 2025-01-12 01:02 | XMS_ITS | Patient Health Record ---
Author Organization [facility] Address [address] [place], [place] [address] Care Team Providers Care General Dentist/Owner Name Role Phone XAVIER LOCKETT Unavailable [phone] Jose Laraa Unavailable Unavailable LILLYAARON BRAVO Unavailable [phone] Allergies No Known Allergies Reason For Referral No Information Medications Medication SIG (Take, Route, Frequency, Duration) Notes Start Date End Date Status Medrol Dosepak ORAL Medrol DosepakOr iginal MedicationMedrol Dosepak *Reorder from [employer] for eRx and Interaction Alerts* 04/24/2020 Active sumatriptan 100 MG Oral Tablet ORAL sumatriptan 100 MG Oral TabletOriginal Medicationsumatriptan 100 MG Oral Tablet *Reorder from [employer] for eRx and Interaction Alerts* 04/24/2020 Active Cephalexin 500 MG 1 capsule Orally three times a day for 7 days Active ALPRAZolam 0.25 MG Oral Tablet ORAL alprazolam 0.25 MG Oral TabletOriginal Medicationalprazolam 0.25 MG Oral Tablet *Reorder from [employer] for eRx and Interaction Alerts* 04/24/2020 Active Metoprolol Tartrate 25 MG Oral Tablet ORAL metoprolol tartrate 25 MG Oral TabletOriginal Medicationmetoprolol tartrate 25 MG Oral Tablet *Reorder from [employer] for eRx and Interaction Alerts* 04/24/2020 Active Immunizations Vaccine Route Administration Date Status Comme nts Influenza, high dose seasonal Unknown 09/17/2023 Admini stered Vital Signs Height-cm 154.94 cm 02/09/2024 Weight-kg 81.65 kg 02/09/2024 Height 61.00 in 02/09/2024 Weight 180 lbs 02/09/2024 BMI 34.01 kg/m2 02/09/2024 Encounters Encounter Location Date Provider Diagnosis [facility] [address] [place], [place] [id number] 02/09/2024 AARON IVEY Localized edema R60.0 ; Primary osteoarthritis, left ankle and foot M19.072 ; Pain in left ankle and joints of left foot M25.572 ; Flat foot [pes planus] (acquired), left foot M21.42 and Left foot pain M79.672 [facility] [address] [facility] [address] [place], [place] [id number] 02/04/2024 XAVIER LOCKETT Assessments Encounter Date Diagnosis (ICD Code) Assessment Notes Treatment Notes Treatment Clinical Notes Section Notes 02/09/2024 Primary osteoarthritis , left ankle and [...] into the patients left sinus tarsi. 02/09/2024 Localized edema (ICD-10 - R60.0) 02/09/2024 Pain in left ankle and joints [...] pain (ICD-10 - M79.672) Plan Of Treatment No Information Insurance Providers Payer Name Payer Address Payer Phone Subscriber Number Group Number Insured Name Patient Relationship to Insured Coverage Start Date Coverage End Date [facility] [address] [place] [phone] [id number] MOLLY PÉREZ Spouse - patient is the spouse of the insured
--- OUTSIDE RECORDS SUMMARY | 2025-01-12 01:02 | XMS_ITS | Referral Summary ---
Author Organization [facility] Orthopedic [facility] Address [address] [place] [phone] Care Team Providers Care Zoology Professor Name Role Phone Diamond Acosta MD Primary Care Provider + Encounters Date Type Department Care Team Description 01/06/2025 2:43 PM YOUTH WORKER - 01/06/2025 11:59 PM YOUTH WORKER Hospital Encounter [facility] ([facility]) [address] [place] [phone] Discharge Disposition: Discharge to home or self care 01/06/2025 2:43 PM YOUTH WORKER - 01/06/2025 11:59 PM YOUTH WORKER Hospital Encounter [facility] ([facility]) [address] [place] [phone] Discharge Disposition: Discharge to home or self care 01/06/2025 10:43 AM YOUTH WORKER - 01/06/2025 11:59 PM YOUTH WORKER Hospital Encounter [facility] [address] [place] [phone] Left ankle pain, unspecified chronicity Discharge Disposition: Discharge to home or self care 01/06/2025 10:42 AM YOUTH WORKER - 01/06/2025 11:59 PM YOUTH WORKER Hospital Encounter [facility] [address] [place] [phone] Left foot pain Discharge Disposition: Discharge to home or self care 01/06/2025 10:40 AM YOUTH WORKER Office Visit [facility] [address] [facility] 2nd [address] [place] [address] Shannan Murcia MD Left foot pain (Primary Dx); Left ankle pain, unspecified chronicity; Eversion deformity of foot, left from Last 3 Months Allergies No known active allergies Medications No known medications Active Problems No known active problems Social History Tobacco Use Types Packs/Day Years Used Date Smoking Tobacco: Never Cigarettes Smokeless Tobacco: Never Tobacco Cessation:Counseling Given: Not Answered Comments Unknown Sex and Gender Information Value Date Recorded Sex Assigned at Not on file Legal Sex Female 9:42 AM YOUTH WORKER Gender Identity Not on file Sexual Orientation Not on file Last Filed Vital Signs Vital Sign Reading Time Taken Comments Blood Pressure 102/60 09/16/2012 5:40 AM CDT Pulse 98 09/16/2012 5:40 AM CDT Temperature - - Respiratory Rate - - Oxygen Saturation - - Inhaled Oxygen Concentration - - Weight 79.8 kg (176 lb) 01/06/2025 11:16 AM YOUTH WORKER Height 153.7 cm (5' 0.5 ) 01/06/2025 11:16 AM CS T Body Mass Index 33.81 01/06/2025 11:16 AM YOUTH WORKER Plan of Treatment Not on file Procedures Procedure Name Priority Date/Time Associated Diagnosis Comments XR TRANSFER OF OUTSIDE FILMS Routine 01/06/2025 2:43 PM YOUTH WORKER XR TRANSFER OF OUTSIDE FILMS Routine 01/06/2025 2:43 PM YOUTH WORKER XR FOOT LEFT 3 OR MORE VIEWS Schedule Routine, Read Routine (OP Routine) 01/06/2025 10:50 AM YOUTH WORKER Left foot pain XR ANKLE LEFT 3 OR MORE VIEWS Schedule Routine, Read Routine (OP Routine) 01/06/2025 10:50 AM YOUTH WORKER Left ankle pain, unspecified chronicity from Last 3 Months Results * XR Outside Reference (01/06/2025 2:43 PM YOUTH WORKER) Impressions [facility] - 01/06/2025 2:43 PM YOUTH WORKER These images are for Reference purposes only and have not been reviewed by [facility]. There will be no report generated by a [facility]iologist. Narrative [facility] - 01/06/2025 2:43 PM YOUTH WORKER EXAMINATION: Images For Reference Purposes Only Shannan Murcia MD IMG XR PROCEDURES Final Re sult Performing Organization Address [facility] de Phone Number [email or web address] * XR Outside Reference (01/06/2025 2:43 PM YOUTH WORKER) Impressions [facility] - 01/06/2025 2:43 PM YOUTH WORKER These images are for Reference purposes only and have not been reviewed by [facility]. There will be no report generated by a [facility]iologist. Narrative [facility] - 01/06/2025 2:43 PM YOUTH WORKER EXAMINATION: Images For Reference Purposes Only Shannan Murcia MD IMG XR PROCEDURES Final Re sult Performing Organization Address [facility] Phone Number [email or web address] * XR Foot Left 3 or More Views (01/06/2025 10:50 AM YOUTH WORKER) Anatomical Region Laterality Modality Lower Extremities, Foot Left Computed Radiography 01/06/2025 1:23 PM YOUTH WORKER Impressions 01/06/2025 2:30 PM YOUTH WORKER 1. Severe pes planovalgus. 2. Postoperative findings of bunionectomy with moderate 1st metatarsophalangeal. 3. Achilles tendinopathy. Dictated by: Aldo Gregory M.D. The radiology attending physician has personally reviewed this study, and had reviewed and/or edited this written report and agrees with it. Electronically signed by: Isai Peoples MD Narrative 01/06/2025 2:30 PM YOUTH WORKER EXAMINATION: XR ANKLE LEFT 3 OR MORE VIEWS, XR FOOT LEFT 3 OR MORE VIEWS HISTORY: Left ankle and left foot pain COMPARISON: No comparisons are available. FINDINGS: Left ankle: 3 views of the ankle are submitted for interpretation. No acute fracture. No dislocation. The talar dome is intact. The ankle mortise is congruent. Severe pes planovalgus. Left foot: 3 views of the left foot were submitted for interpretation. No acute fracture. No dislocation. Severe pes planovalgus. 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 Postoperative findings of bunionectomy. Small calcaneal spur. Achilles tendinopathy with effacement of Kagers fat pad. Cricket exostosis. 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 Procedure Note Isai Peoples MD - 01/06/2025 EXAMINATION: XR ANKLE LEFT 3 OR MORE VIEWS, XR FOOT LEFT 3 OR MORE VIEWS HISTORY: Left ankle and left foot pain COMPARISON: No comparisons are available. FINDINGS: Left ankle: 3 views of the ankle are submitted for interpretation. No acute fracture. No dislocation. The talar dome is intact. The ankle mortise is congruent. Severe pes planovalgus. Left foot: 3 views of the left foot were submitted for interpretation. No acute fracture. No dislocation. Severe pes planovalgus. 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 Postoperative findings of bunionectomy. Small calcaneal spur. Achilles tendinopathy with effacement of Kagers fat pad. Cricket exostosis. 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 IMPRESSION: 1. Severe pes planovalgus. 2. Postoperative findings of bunionectomy with moderate 1st metatarsophalangeal. 3. Achilles tendinopathy. Dictated by: Aldo Gregory M.D. The radiology attending physician has personally reviewed this study, and had reviewed and/or edited this written report and agrees with it. Electronically signed by: Isai Peoples MD us Shannan Murcia MD IMG XR PROCEDURES Final Re sult * XR Ankle Left 3 or More Views (01/06/2025 10:50 AM YOUTH WORKER) Anatomical Region Laterality Modality Lower Extremities, Ankle Left Compute d Radiography 01/06/2025 1:23 PM YOUTH WORKER Impressions 01/06/2025 2:30 PM YOUTH WORKER 1. Severe pes planovalgus. 2. Postoperative findings of bunionectomy with moderate 1st metatarsophalangeal. 3. Achilles tendinopathy. Dictated by: Aldo Gregory M.D. The radiology attending physician has personally reviewed this study, and had reviewed and/or edited this written report and agrees with it. Electronically signed by: Isai Peoples MD Narrative 01/06/2025 2:30 PM YOUTH WORKER EXAMINATION: XR ANKLE LEFT 3 OR MORE VIEWS, XR FOOT LEFT 3 OR MORE VIEWS HISTORY: Left ankle and left foot pain COMPARISON: No comparisons are available. FINDINGS: Left ankle: 3 views of the ankle are submitted for interpretation. No acute fracture. No dislocation. The talar dome is intact. The ankle mortise is congruent. Severe pes planovalgus. Left foot: 3 views of the left foot were submitted for interpretation. No acute fracture. No dislocation. Severe pes planovalgus. 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 Postoperative findings of bunionectomy. Small calcaneal spur. Achilles tendinopathy with effacement of Kagers fat pad. Cricket exostosis. 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 Procedure Note Isai Peoples MD - 01/06/2025 EXAMINATION: XR ANKLE LEFT 3 OR MORE VIEWS, XR FOOT LEFT 3 OR MORE VIEWS HISTORY: Left ankle and left foot pain COMPARISON: No comparisons are available. FINDINGS: Left ankle: 3 views of the ankle are submitted for interpretation. No acute fracture. No dislocation. The talar dome is intact. The ankle mortise is congruent. Severe pes planovalgus. Left foot: 3 views of the left foot were submitted for interpretation. No acute fracture. No dislocation. Severe pes planovalgus. 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 Postoperative findings of bunionectomy. Small calcaneal spur. Achilles tendinopathy with effacement of Kagers fat pad. Cricket exostosis. 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 IMPRESSION: 1. Severe pes planovalgus. 2. Postoperative findings of bunionectomy with moderate 1st metatarsophalangeal. 3. Achilles tendinopathy. Dictated by: Aldo Gregory M.D. The radiology attending physician has personally reviewed this study, and had reviewed and/or edited this written report and agrees with it. Electronically signed by: Isai Peoples MD Shannan Murcia MD IMG XR PROCEDURES Final Re sult from Last 3 Months Insurance MEDICARE [facility] MEDICARE [facility] Care Teams Zoology Professor Relationship Specialty Start Date End Date Diamond Acosta MD PCP - General Internal Medicine 10/08/24
--- OUTSIDE RECORDS SUMMARY | 2025-01-12 01:02 | XMS_ITS | Clinical Summary ---
Author Organization [facility] Orthopedic [facility] Address [address] [place] [phone] Care Team Providers Care Electrician Crane Maintenance Name Role Phone Diamond Acosta MD Primary Care Provider + Allergies No known active allergies Medications No known medications Active Problems No known active problems Encounters Date Type Department Care Team Description 01/06/2025 2:43 PM OB SCRUB TECH - 01/06/2025 11:59 PM OB SCRUB TECH Hospital Encounter [facility] ([facility]) [address] [place] [phone] Discharge Disposition: Discharge to home or self care 01/06/2025 2:43 PM OB SCRUB TECH - 01/06/2025 11:59 PM OB SCRUB TECH Hospital Encounter [facility] ([facility]) [address] [place] [phone] Discharge Disposition: Discharge to home or self care 01/06/2025 10:43 AM OB SCRUB TECH - 01/06/2025 11:59 PM OB SCRUB TECH Hospital Encounter [facility] [address] [place] [phone] Left ankle pain, unspecified chronicity Discharge Disposition: Discharge to home or self care 01/06/2025 10:42 AM OB SCRUB TECH - 01/06/2025 11:59 PM OB SCRUB TECH Hospital Encounter [facility] [address] [place] [phone] Left foot pain Discharge Disposition: Discharge to home or self care 01/06/2025 10:40 AM OB SCRUB TECH Office Visit [facility] [address] [facility] 2nd [address] [place] [address] Shannan Murcia MD Left foot pain (Primary Dx); Left ankle pain, unspecified chronicity; Eversion deformity of foot, left from Last 3 Months Surgical History Surgery Date Site/Laterality Comments SECTION May 1982 JOINT REPLACEMENT Oct 2014 right hip replacement TUBAL LIGATION Approx 1988 Medical History Medical History Date Comments Anxiety couple yrs ago, when trying to g et to sleep Arthritis several yrs ago Migraines occassionally Hypertension several yrs ago Family History Medical History Relation Name Comments Hypertension Father Daniel Tirado Diabetes Mother Madalyn Knipping Early Mother Madalyn Knipping Hypertension Mother Madalyn Knipping Hypertension Sister Yodit Ferreira Relation Name Status Comments Father Daniel Tirado Mother Madalyn Knipping Sister Yodit Ferreira Social History Tobacco Use Types Packs/Day Years Used Date Smoking Tobacco: Never Cigarettes Smokeless Tobacco: Never Tobacco Cessation:Counseling Given: Not Answered Comments Unknown Sex and Gender Information Value Date Recorded Sex Assigned at Not on file Legal Sex Female 9:42 AM OB SCRUB TECH Gender Identity Not on file Sexual Orientation Not on file Obstetrics History Last Filed Vital Signs Vital Sign Reading Time Taken Comments Blood Pressure 102/60 09/16/2012 5:40 AM CDT Pulse 98 09/16/2012 5:40 AM CDT Temperature - - Respiratory Rate - - Oxygen Saturation - - Inhaled Oxygen Concentration - - Weight 79.8 kg (176 lb) 01/06/2025 11:16 AM OB SCRUB TECH Height 153.7 cm (5' 0.5 ) 01/06/2025 11:16 AM CS T Body Mass Index 33.81 01/06/2025 11:16 AM OB SCRUB TECH Plan of Treatment Health Maintenance Due Date Last Done Comments Colon Cancer Screening-Colonoscopy 1960 Depression Screening 1958 Fall Risk Assessment 1958 Hepatitis C Screening 1960 Osteoporosis Screening-Bone Density Scan 1958 DTaP/Tdap/Td Vaccine (1 - Tdap) 1969 Hepatitis B Screening 1976 Zoster Vaccine (1 of 2) 2008 Well Visit 65+ 2023 Breast Cancer Screening-Mammogram 12/20/2023 023 Influenza Vaccine (#1) 2024 Pneumococcal vaccine 65+ Completed 12/17/2023 Procedures Procedure Name Priority Date/Time Associated Diagnosis Comments XR TRANSFER OF OUTSIDE FILMS Routine 01/06/2025 2:43 PM OB SCRUB TECH XR TRANSFER OF OUTSIDE FILMS Routine 01/06/2025 2:43 PM OB SCRUB TECH XR FOOT LEFT 3 OR MORE VIEWS Schedule Routine, Read Routine (OP Routine) 01/06/2025 10:50 AM OB SCRUB TECH Left foot pain XR ANKLE LEFT 3 OR MORE VIEWS Schedule Routine, Read Routine (OP Routine) 01/06/2025 10:50 AM OB SCRUB TECH Left ankle pain, unspecified chronicity from Last 3 Months Results * XR Outside Reference (01/06/2025 2:43 PM OB SCRUB TECH) Impressions [facility] - 01/06/2025 2:43 PM OB SCRUB TECH These images are for Reference purposes only and have not been reviewed by [facility]. There will be no report generated by a [facility] Radiologist. Narrative [facility] - 01/06/2025 2:43 PM OB SCRUB TECH EXAMINATION: Images For Reference Purposes Only Shannan Murcia MD IM XR PROCEDURES Final Re sult [facility] * XR Outside Reference (01/06/2025 2:43 PM OB SCRUB TECH) Impressions [facility] - 01/06/2025 2:43 PM OB SCRUB TECH These images are for Reference purposes only and have not been reviewed by [facility]. There will be no report generated by a [facility] Radiologist. Narrative [facility] - 01/06/2025 2:43 PM OB SCRUB TECH EXAMINATION: Images For Reference Purposes Only Shannan Murcia MD IMG XR PROCEDURES Final Re sult [facility] * XR Foot Left 3 or More Views (01/06/2025 10:50 AM OB SCRUB TECH) Anatomical Region Laterality Modality Lower Extremities, Foot Left Computed Radiography 01/06/2025 1:23 PM OB SCRUB TECH Impressions 01/06/2025 2:30 PM OB SCRUB TECH 1. Severe pes planovalgus. 2. Postoperative findings of bunionectomy with moderate 1st metatarsophalangeal. 3. Achilles tendinopathy. Dictated by: Aldo Gregory M.D. The radiology attending physician has personally reviewed this study, and had reviewed and/or edited this written report and agrees with it. Electronically signed by: Isai Peoples MD Narrative 01/06/2025 2:30 PM OB SCRUB TECH EXAMINATION: XR ANKLE LEFT 3 OR MORE [...] 3 or More Views (01/06/2025 10:50 AM OB SCRUB TECH) Anatomical Region Laterality Modality Lower Extremities, Ankle Left Compute d Radiography 01/06/2025 1:23 PM OB SCRUB TECH Impressions 01/06/2025 2:30 PM OB SCRUB TECH 1. Severe pes planovalgus. 2. Postoperative findings of bunionectomy with moderate 1st metatarsophalangeal. 3. Achilles tendinopathy. Dictated by: Aldo Gregory M.D. The radiology attending physician has personally reviewed this study, and had reviewed and/or edited this written report and agrees with it. Electronically signed by: Isai Peoples MD Narrative 01/06/2025 2:30 PM OB SCRUB TECH EXAMINATION: XR ANKLE LEFT 3 OR MORE [...] sult from Last 3 Months Insurance MEDICARE [facility] MEDICARE [facility] Care Teams Electrician Crane Maintenance Relationship Specialty Start Date End Date Diamond Acosta MD PCP - General Internal Medicine 10/08/24
--- OUTSIDE RECORDS SUMMARY | 2025-01-12 01:02 | XMS_ITS | Data Portability ---
Author Organization [facility] Address [address] [place] [address] [place] [address] Care Team Providers Care Line Service Attendant Name Role Phone ALEXANDER RMAESH Primary Care Provider Assessment Encounter Date Assessment Date Assessment LastModified by Organization Details LastModified Time 06/17/2022 06/17/2022 Annual gynecological exam performed. Patient will come back in a year unless there are new symptoms. Not available 06/17/2022 12:38:25 Plan of Treatment Reminders Order Date Submit Date Provider Last Modified By Organization Details Last Modified Time Details Appointments None recorded. Lab None recorded. Referral None recorded. Procedures None recorded. Surgeries None recorded. Imaging MAMMO, screening, digital, bilateral 2023 [facility], [address], [place], [address], 4 05:01:04 Medication Orders estradiol 0.01% (0.1 mg/gram) vaginal cream 2023 024 [id number], [address], [place], [place], [id number], 4 09:58:19 nystatin-tr iamcinolone 100,000 unit/gram-0 .1 % topical ointment [email or web address] [place] [address] [facility]668[facility], [address], [place], [place], [id number], 4 09:37:28 Macrobid 100 mg capsule 2021 022 [email or web address] 1 [facility] #82526, [address], [place], [place], [id number], 2 09:48:56 metronidazo le 0.75 % (37.5 mg/5 gram) vaginal gel 2021 022 [email or web address] [facility] #00982, [address], [place], [place], [id number], 4 09:37:23 Diflucan 150 mg tablet 2021 022 [facility] #02547, [address], [place], [place], [id number], 2 10:29:17 Patient TargetsNo targets recorded. Patient InstructionsNo instructions recorded. Reason for Referral None Reported. Results Created Date Observation Date Name Description Value Unit Range Abnormal Flag Note LastModifiedBy Organization Detail LastModifiedTime 05/31/2005/31/2022 URINA LYSIS , WITH MICRO SCOPI C color, urine Yellow colorl ess, light yellow , yellow , dark yellow , straw Not Available [facility] [address] [place], [address], 06/02/2022 06:01:01 05/31/20 22 05/31/2022 URINA LYSIS , WITH MICRO SCOPI C clarity, urine Slight ly Cloudy Not Available [facility] [address] [place], [address], 06/02/2022 06:01:01 05/31/20 22 05/31/2022 URINA LYSIS , WITH MICRO SCOPI C glucose, urine Negati ve mg/dL negati ve Not Available [facility] [address] [place], [address], 06/02/2022 06:01:01 05/31/20 22 05/31/2022 URINA LYSIS , WITH MICRO SCOPI C bilirubin, urine Negati ve mg/dL negati ve Not Available [facility] [address] [place], [address], 06/02/2022 06:01:01 05/31/20 22 05/31/2022 URINA LYSIS , WITH MICRO SCOPI C ketones, urine Negati ve mg/dL negati ve Not Available [facility] [address] [place], [address], 06/02/2022 06:01:01 05/31/20 22 05/31/2022 URINA LYSIS , WITH MICRO SCOPI C pH, urine 8.0 . 5.0-9. 0 Not Available [facility] [address] [place], [address], 06/02/2022 06:01:01 05/31/20 22 05/31/2022 URINA LYSIS , WITH MICRO SCOPI C specific gravity, urine 1.019 . 1.001- 1.035 Not Available [facility] [address] [place], [address], 06/02/2022 06:01:01 05/31/20 22 05/31/2022 URINA LYSIS , WITH MICRO SCOPI C blood, urine Negati ve negati ve Not Available [facility] [address] [place], [address], 06/02/2022 06:01:01 05/31/20 22 05/31/2022 URINA LYSIS , WITH MICRO SCOPI C protein, UA Negati ve mg/dL negati ve Not Available [facility] [address] [place], [address], 06/02/2022 06:01:01 05/31/20 22 05/31/2022 URINA LYSIS , WITH MICRO SCOPI C urobilinogen , urine <2.0 mg/dL <2.0 Not Available [facility] [address] [place], [address], 06/02/2022 06:01:01 05/31/20 22 05/31/2022 URINA LYSIS , WITH MICRO SCOPI C nitrite, urine Negati ve negati ve Not Available [facility] [address] [place], [address], 06/02/2022 06:01:01 05/31/20 22 05/31/2022 URINA LYSIS , WITH MICRO SCOPI C leukocyte esterase, urine Negati ve kamilla/u L negati ve Not Available [facility] [address] [place], [address], 06/02/2022 06:01:01 05/31/20 22 05/31/2022 URINA LYSIS , WITH MICRO SCOPI C WBC, urine 0-5 /hpf none, 0-5 Not Available [facility] [address] [place], [address], 06/02/2022 06:01:01 05/31/20 22 05/31/2022 URINA LYSIS , WITH MICRO SCOPI C RBC, urine 0-2 /hpf none, 0-2 Not Available [facility] [address] [place], [address], 06/02/2022 06:01:01 05/31/20 22 05/31/2022 URINA LYSIS , WITH MICRO SCOPI C bacteria, urine None /hpf none Not Available [facility] [address] [place], [address], 06/02/2022 06:01:01 05/31/20 22 05/31/2022 URINA LYSIS , WITH MICRO SCOPI C squamous epithelial cells, urine Trace /hpf none abnormal Not Available [facility] [address] [place], [address], 06/02/2022 06:01:01 05/31/20 22 05/31/2022 CULTU RE: URINE result report SEE RESULT S BELOW Test: Cultu re: Urine Speci men Sourc e: Urine Voide d Speci men Type: Urine Speci men Date: 022 4:21 PM Resul t Date: 2021 4:57 AM Resul t Statu s: Final resul t Abnor mal: No Resul ting Lab: [facility] [address] [facility] [address] Tel: CULTU RE ----- ----- ----- --- Cultu re resul t (>=3 organ isms prese nt) indic ates possi ble conta minat ion. Repea t cultu re if sympt oms indic ate. Not Available [facility] [address] [place], [address], 06/02/2022 06:01:02 05/31/20 22 05/31/2022 urina lysis , dipst ick Leukocytes neg Not Available [facility] [address], [place], [address], 05/31/2022 16:54:17 05/31/20 22 05/31/2022 urina lysis , dipst ick Nitrite neg Not Available [facility] [facility] [address], [place], [address], 05/31/2022 16:54:17 05/31/20 22 05/31/2022 urina lysis , dipst ick Urobilinogen neg Not Available Perlita cowart [address], [place], [address], 05/31/2022 16:54:17 05/31/20 22 05/31/2022 urina lysis , dipst ick Protein neg Not Available [facility] [address], [place], [address], 05/31/2022 16:54:17 05/31/20 22 05/31/2022 urina lysis , dipst ick pH 5 Not Available [facility] [address], [place], [address], 05/31/2022 16:54:17 05/31/20 22 05/31/2022 urina lysis , dipst ick Specific [place] 1.020 Not Available [facility] caryn [address], [place], [address], 05/31/2022 16:54:17 05/31/20 22 05/31/2022 urina lysis , dipst ick Ketone neg Not Available [place] [address], [place], [address], 05/31/2022 16:54:17 05/31/20 22 05/31/2022 urina lysis , dipst ick Bilirubin neg Not Available [facility] [address], [place], [address], 05/31/2022 16:54:17 05/31/20 22 05/31/2022 urina lysis , dipst ick Glucose neg Not Available [place] [address], [place], [address], 05/31/2022 16:54:17 05/31/20 22 05/31/2022 urina lysis , dipst ick Appearance clear Not Available [facility] [address], [place], [address], 05/31/2022 16:54:17 05/31/20 22 05/31/2022 urina lysis , dipst ick Color yellow Not Available [facility] [address], [place], [address], 05/31/2022 16:54:17 06/17/20 22 06/17/2022 IMAGE GUIDE D PAP AND HPV REGAR DLESS image guided Pap, HPV regardless of Pap result SEE RESULT S BELOW CASE REPOR T: Cytol ogy Gynec ologi cassandra Repor t Case: [id number] Autho jory weir Provi yessenia: Tracy sampson , Giovanni Dennis cted: 06/17 1741 [employer] Order ing Locat ion: [place] [facility] Recei miriam: 06/18 0141 First Scree n: Renetta Coker, CT Rescr een: Yanira mullen, Samantha albert, CT Speci men: Scree hermes Pap - Image d, Cervi x STATE MENT OF ADEQU ACY: Satis facto ry for evalu ation Trans forma tion zone compo nent prese nt FINAL DIAGN OSIS: Negat janey for Intra epith elial Lesio n or Nazanin martin (NIL) . Elect gilson de la fuente osvaldo d by Yanira mullen, Samantha albert, CT on 2021 at 7:16 PM ----- ----- ----- ----- ----- ----- ----- ----- ----- ----- ----- ----- ----- ----- ----- ----- ----- ---- HPV RESUL TS: HPV mRNA E6/E7 : No HPV mRNA Detec kodi NOTE: This high risk HPV mRNA assay detec ts fourt een high- risk HPV types (16, 18, 31, 33, 35, 39, 45, 51, 52, 56, 58, 59, 66, 68) witho ut diffe renti ation . COMME NT: Note: This speci men was revie wed by a Cytot echno logis t and/o r Patho logis t (as indic ated in this repor t) after evalu ation using the Thinp rep Imagi ng Syste m. CLINI CASSANDRA INFOR MATIO N: Menst rual Statu s: LMP (if appli cable ): Clini cassandra Histo ry/Pr eviou s Pap: Type of Neopl dawson (if appli cable ): Signi fican t Clini cassandra Findi ngs: Other Histo ry: Hormo brionna (if appli cable ): PAP EDUCA ROMÁN L NOTE: The Pap Test is a scree hermes test with an inher ent false negat janey rate. Liqui d-bas ed sampl ing may decre ase, but will not elimi mikaela, false negat janey resul ts. A negat janey resul t does not precl ude the prese nce and/o r devel opmen t of disea se, since the prese nce of abnor mal cells in the sampl e depen ds on the locat ion of the lesio n and sampl ing techn ique. Ming nued regul ar scree hermes is the best metho d of cance r preve ntion . If repor kodi cytol ogic findi ng do not corre late with physi cassandra and/o r histo rical findi ngs, furth er inves tigat ion is recom rosy d, as clini weston warra nted. Not Available [facility] [address] [place] [address], [place], [address], 06/21/2022 20:18:40 08/05/20 22 08/05/2022 URINA LYSIS , WITH MICRO SCOPI C urinalysis, with microscopic CANCEL LED Reord ered Not Available [facility] [address] [place] [address], [place], [address], 08/06/2022 04:58:31 08/05/20 22 08/05/2022 URINA LYSIS , COMPL ETE (QUES T) color YELLOW yellow Not Available [facility] [address] [place], [address], 08/07/2022 07:10:16 08/05/20 22 08/05/2022 URINA LYSIS , COMPL ETE (QUES T) apperance CLEAR clear Not Available [facility] [address] [place], [address], 08/07/2022 07:10:16 08/05/20 22 08/05/2022 URINA LYSIS , COMPL ETE (QUES T) specific gravity 1.009 1.001- 1.035 Not Available [facility] [place], [address], 08/07/2022 07:10:16 08/05/2008/05/2022 URINA LYSIS , COMPL ETE (QUES T) pH 7.0 5.0-8. 0 Not Available [facility] [address] [place], [place] [address], [place], [address], 08/07/2022 07:10:16 08/05/2008/05/2022 URINA LYSIS , COMPL ETE (QUES T) glucose NEGATI VE negati ve Not Available [facility] [address] [place], [place] [address], [place], [address], 08/07/2022 07:10:16 08/05/2008/05/2022 URINA LYSIS , COMPL ETE (QUES T) bilirubin NEGATI VE negati ve Not Available [facility] [address] [place] [address], [place], [address], 08/07/2022 07:10:16 08/05/20 22 08/05/2022 URINA LYSIS , COMPL ETE (QUES T) ketones NEGATI VE negati ve Not Available [facility] [address] [place], [place] [address], [place], [address], 08/07/2022 07:10:16 08/05/2008/05/2022 URINA LYSIS , COMPL ETE (QUES T) occult blood NEGATI VE negati ve Not Available [facility] [address] [place], [place] [address], [place], [address], 08/07/2022 07:10:16 08/05/20 22 08/05/2022 URINA LYSIS , COMPL ETE (QUES T) protein NEGATI VE negati ve Not Available [facility] [address] [place], [place] [address], [place], [address], 08/07/2022 07:10:16 08/05/20 22 08/05/2022 URINA LYSIS , COMPL ETE (QUES T) nitrite NEGATI VE negati ve Not Available [facility] [address] [place] [address], [address], 08/07/2022 07:10:16 08/05/20 22 08/05/2022 URINA LYSIS , COMPL ETE (QUES T) leukocyte esterase NEGATI VE negati ve Not Available [facility] [address] [place] [address], [address], 08/07/2022 07:10:16 08/05/20 22 08/05/2022 URINA LYSIS , COMPL ETE (QUES T) WBC NONE SEEN /hpf < or = 5 Not Available [facility] [address] [place] [address], [address], 08/07/2022 07:10:16 08/05/20 22 08/05/2022 URINA LYSIS , COMPL ETE (QUES T) RBC NONE SEEN /hpf < or = 2 Not Available [facility] [address] [place] [address], [address], 08/07/2022 07:10:16 08/05/20 22 08/05/2022 URINA LYSIS , COMPL ETE (QUES T) squamous epithelial cells NONE SEEN /hpf < or = 5 Not Available [facility] [address] [place] [address], [address], 08/07/2022 07:10:16 08/05/20 22 08/05/2022 URINA LYSIS , COMPL ETE (QUES T) bacteria NONE SEEN /hpf none seen Not Available [facility] [address] [place], [address], 08/07/2022 07:10:16 08/05/20 22 08/05/2022 URINA LYSIS , COMPL ETE (QUES T) hyaline cast NONE SEEN /lpf none seen Perfo rming Organ izati on Infor matio n: Site ID: CB Name: [facility] Addre ss: [address] [place] [address] Dire tor: Gayle wilson M.D. Not Available [facility] [address] [place], [address], 08/07/2022 07:10:16 08/05/20 22 08/05/2022 CULTU RE: URINE result report SEE RESULT S BELOW Test: Cultu re: Urine Speci men Sourc e: Urine Voide d Speci men Type: Urine Speci men Date: 2021 4:57 PM Resul t Date: 2021 6:06 AM Resul t Statu s: Final resul t Abnor mal: No Resul gaviotag Lab: [facility] [address] [facility] [address] Tel: CULTU RE ----- ----- ----- --- No growt h in 1 day (dete ction level of 10,00 0 colon ies / ml.) Not Available [facility] [address] [place], [address], 08/07/2022 07:10:17 10/14/20 22 10/14/2022 MOBIL UNCUS MULIE RIS/C URTIS ASHLEY, RT-PC R, ONE SWAB nm bkr mobiluncus mulieris and mobiluncus curtisii by RT-PCR Negati ve Swab- 1 Vag/C erv Not Available [facility] (Lab) [address] [place], [address], 10/19/2022 21:03:50 10/14/20 22 10/14/2022 RENO DA MAXWELL I BY RT-PC R sally krusei by RT-PCR Negati ve Swab- 1 Vag/C erv Not Available [facility] (Lab) [address] [facility], [place], [address], 10/19/2022 21:03:50 10/14/20 22 10/14/2022 BACTE RIAL VAGIN OSIS PANEL RT-PC R, ONESW AB gardnerella vaginalis PCR Negati ve Swab- 1 Vag/C erv Not Available [facility] (Lab) [address] [facility], [place], [address], 10/19/2022 21:03:51 10/14/20 22 10/14/2022 BACTE RIAL VAGIN OSIS PANEL RT-PC R, ONESW AB atopobium vaginae PCR Negati ve Swab- 1 Vag/C erv Not Available [facility] (Lab) [address] [facility], [place], [address], 10/19/2022 21:03:51 10/14/20 22 10/14/2022 BACTE RIAL VAGIN OSIS PANEL RT-PC R, ONESW AB bacterial vaginosis associated bacteria 2 (bvab2) Negati ve Swab- 1 Vag/C erv Not Available [facility] (Lab) [address] [place], [address], 10/19/2022 21:03:51 10/14/20 22 10/14/2022 BACTE RIAL VAGIN OSIS PANEL RT-PC R, ONESW AB megasphaera species (type 1 and type 2) PCR Negati ve (Type1 ,Type2 ) Swab- 1 Vag/C erv Type1 :Nega tive Type2 :Nega tive. Not Available [facility] (Lab) [address] [place], [address], 10/19/2022 21:03:51 10/14/20 22 10/14/2022 BACTE RIAL VAGIN OSIS PANEL RT-PC R, ONESW AB lactobacillu s (bvpanel) PCR See Commen t Swab- 1 Vag/C erv L.cri spatu s: Negat janey L.trina senii : Negat janey L.gas seri : Negat janey L.ine rs : Posit janey. Not Available [facility] (Lab) [address] [place], [address], 10/19/2022 21:03:51 10/14/20 22 10/14/2022 UROGE NITAL MYCOP LASMA /UREA PLASM A PANEL RT-PC R, ONESW AB nm bkr mycoplasma genitalium by RT-PCR Negati ve Swab- 1 Vag/C erv Not Available [facility] (Lab) [address] [place], [address], 10/19/2022 21:03:51 10/14/20 22 10/14/2022 UROGE NITAL MYCOP LASMA /UREA PLASM A PANEL RT-PC R, ONESW AB nm bkr mycoplasma hominis by RT-PCR Negati ve Swab- 1 Vag/C erv Not Available [facility] (Lab) [address] [place], [address], 10/19/2022 21:03:51 10/14/20 22 10/14/2022 UROGE NITAL MYCOP LASMA /UREA PLASM A PANEL RT-PC R, ONESW AB nm bkr ureaplasma urealyticum by RT-PCR Negati ve Swab- 1 Vag/C erv Not Available [facility] (Lab) [address] [place], [address], 10/19/2022 21:03:51 10/14/20 22 10/14/2022 RENO DA VAGIN ITIS PANEL RT-PC R, ONESW AB sally albicans PCR Negati ve Swab- 1 Vag/C erv Not Available [facility] (Lab) [address] [place], [address], 10/19/2022 21:03:52 10/14/20 22 10/14/2022 RENO DA VAGIN ITIS PANEL RT-PC R, ONESW AB sally tropicalis PCR Negati ve Swab- 1 Vag/C erv Not Available [facility] (Lab) [address] [facility], [place], [address], 10/19/2022 21:03:52 10/14/20 22 10/14/2022 RENO DA VAGIN ITIS PANEL RT-PC R, ONESW AB sally parapsilosis PCR Negati ve Swab- 1 Vag/C erv Not Available [facility] (Lab) [address] [facility], [place], [address], 10/19/2022 21:03:52 10/14/20 22 10/14/2022 RENO DA VAGIN ITIS PANEL RT-PC R, ONESW AB sally glabrata PCR Negati ve Swab- 1 Vag/C erv Not Available [facility] (Lab) [address] [facility], [place], [address], 10/19/2022 21:03:52 03/15/20 24 03/15/2024 VAGIN ITIS/ VAGIN OSIS, DNA PROBE sally sp. detection, direct probe Negati ve negati ve Not Available [facility] (Lab) [address] [facility], [place], [address], 03/16/2024 14:07:36 03/15/20 24 03/15/2024 VAGIN ITIS/ VAGIN OSIS, DNA PROBE gardnerella vag. detection, direct probe Positi ve negati ve abnormal Not Available [facility] (Lab) [address] [place], [address], 03/16/2024 14:07:36 03/15/20 24 03/15/2024 VAGIN ITIS/ VAGIN OSIS, DNA PROBE trichomonas vag. detection, direct probe Negati ve negati ve Not Available [facility] (Lab) [address] [facility], [place], [address], 03/16/2024 14:07:36 12/20/19 23 12/20/2022 MAMMO , scree hermes, bilat eral No observ ation record ed. [facility] [address], [place], [address], 04/15/2024 22:10:16 10/27/20 24 10/27/2024 imagi ng/di agnos tic resul t No observ ation record ed. [facility] [address], [place], [address], 11/10/2024 04:16:56 Result Notes None recorded. Problems Name Problem SNOMED Code Status Onset Date Resolution Date Notes Provider Name and Address Organization Details Recorded Time Adult health examinat ion Completed 201403/09/2021 Routine general medical examinat ion at a [facility] care facility ;Practic e ID: 0001 Halima jeff [facility] 16:18:09 Speciali zed medical examinat ion Completed 201403/09/2021 Routine gynecolo gical examinat ion;Prac nestor ID: 0001 Halima jeff [facility] 16:18:25 Screenin g for malignan t neoplasm of cervix Completed 201403/09/2021 Pap Smear;Pr actice ID: 0001 Halima jeff [facility] 16:18:19 Screenin g for malignan t neoplasm of rectum Completed 201403/09/2021 Screenin g for malignan t neoplasm s of the rectum;P ractice ID: 0001 Halima jeff [facility] 16:18:20 Acute vaginiti s [id number] Completed 201503/09/2021 Acute vaginiti s;Practi ce ID: 0001 Halima jeff [facility] 1 16:18:[address] Concept Completed 201503/09/2021 Encntr for general adult medical exam w/o abnormal findings ;Practic e ID: 0001 Halima jeff [facility] 16:18:[address] Concept Completed 201503/09/2021 Encntr for obgyn hospitalist physician exam (general ) (routine ) w/o abn findings ;Practic e ID: 0001 Halima jeff [facility] 16:18:23 Vaginola bial hernia Completed 201503/09/2021 Other specifie d noninfla mmatory disorder s of vagina;P ractice ID: 0001 Halima Munguia [facility] 16:18:27 Acute vulvitis [id number] Completed 201603/09/2021 Acute vulvitis ;Practic e ID: 0001 Halima jeff [facility] 16:18:07 Blood leukocyt e number above referenc e range [id number] Completed 201703/09/2021 Elevated white blood cell count, unspecif ied;Prac nestor ID: 0001 Halima jeff [facility] 16:18:12 Dysuria [id number] Completed 201703/09/2021 Dysuria; Practice ID: 0001 Halima Munguia [facility] 16:18:11 Atrophic vaginiti s 44597510 Completed 201203/09/2021 Postmeno pausal atrophic vaginiti s;Record ed Elsewher e: No Locat ion: Roxanne [facility] S ource: [employer] bonifacio: N Practi ce ID: 0001 Billy lable Time: 09:45:00 AM Halima jeff, [facility] 16:18:10 Postmeno pausal bleeding [id number] Completed 201203/09/2021 Postmeno pausal bleeding ;Recorde d Elsewher e: No Locat ion: Jeaneth alexei [facility] S ource: [employer] bon[place]: N Sergeyti ce ID: [id number] Billy lable Time: 03:00:00 PM Halima jeff [facility] 16:18:18 Leukocyt osis [id number] Completed 201203/09/2021 LEUKOCYT OSIS NOS;John rded Elsewher e: No [facility] [employer] bon[place]: N Sergeyti ce ID: [id number] Billy lable Time: 03:00:00 PM Halima jeff [facility] 16:18:15 Increase d frequenc y of urinatio n [id number] Completed 201803/09/2021 Frequenc y of micturit ion;John rded Elsewher e: No Locat ion: Jeaneth alexei [facility] S ource: [employer] bon[place]: N Sergeyti ce ID: [id number] Billy lable Time: 04:00:00 PM Halima jeff [facility] 16:18:14 Vaginiti s and vulvovag initis Completed 201203/09/2021 Vaginiti s;Record ed Elsewher e: No Locat ion: Jeaneth alexei [facility] S ource: [employer] bon[place]: N Practi ce ID: [id number] Billy lable Time: 03:00:00 PM Halima jeff [facility] 16:18:26 Menopaus al symptom [id number] Completed 201403/09/2021 Menopaus al symptom; Recorded Elsewher e: No Locat ion: Jeaneth alexei [facility] S ource: [employer] bon[place]: N Practi ce ID: 0001 Billy lable Time: 09:30:00 AM Halima Munguia [facility] 16:18:16 Problem Notes None recorded. Procedures Surgical History Date Name Laterality Status Provider Name and Address Organization Details Recorded Time 06/17/20 22 Date of Last Pap Smear completed [place] [facility] 10/11/2022 18:24:18 09/03/20 21 Date of Last Mammogram completed [facility] 06/17/2022 12:40:29 08/11/20 21 Most Recent Bone Density completed [facility] 06/17/2022 12:41:01 11/24/19 14 total replacement of hip completed [place] [facility] 10/11/2022 18:30:58 11/24/19 08 procedure on foot completed [place] [facility] 10/11/2022 18:30:48 11/24/19 06 procedure on foot completed [facility] 10/11/2022 18:30:45 11/24/18 84 ligation of bilateral fallopian tubes completed [place] [facility] 03/09/2021 16:23:42 06/22/19 82 section completed [place] [facility]12[facility]22 09:50:36 Imaging Results Imaging Date Name Status LastModified by Organiz ation Details LastModified Time 12/20/2022 MAMMO, screening, bilateral completed [facility] [address], [place], [address], 04/15/2024 22:10:16 10/27/2024 imaging/diagno stic result active [facility] [address], [place], [address], 11/10/2024 04:16:56 Procedure Notes None recorded. Medical Equipment None Reported. Allergies No known drug allergies Medications Name Sig Start Date Stop Date Status Note LastModified by Organization Details LastModified Time fluconazo le 150 mg tablet TAKE 1 TABLET BY MOUTH EVERY OTHER DAY FOR 3 DOSES 08/05 completed Not Available Not Available Not Available sumatript an 100 mg tablet 03/15 completed Not Available Not Available Not Available fluconazo le 200 mg tablet TAKE 1 TABLET BY MOUTH EVERY OTHER DAY FOR 3 DOSES 10/12 completed Not Available Not Available Not Available vitamin E 100 unit capsule 03/09 completed Prescrib ed Elsewher e: Yes [facility] odify By: barbara Jeffrey nter DateTime : 05/12/20 07:54:30 PM Not Available Not Available Not Available metronida zole 0.75 % (37.5 mg/5 gram) vaginal gel INSERT 1 APPLICAT ORFUL VAGINALL Y EVERY DAY AT BEDTIME FOR 5 NIGHTS 04/14 completed Not Available Not Available Not Available Pyridium 100 mg tablet TAKE 1 TABLET BY MOUTH THREE TIMES DAILY 06/17 completed Not Available Not Available Not Available Mobic 7.5 mg tablet take 1 tablet by oral route every day 10/14 completed Prescrib ed Elsewher e: Yes Loca tion: [facility] odify By: jmoreno mazariegos DateTime : 09/24/20 16 03:00:00 PM Not Available Not Available Not Available Zithromax Z-Dawit 250 mg tablet take 2 tablet (500MG) by oral route every day for 1 day then 1 tablet (250 mg) by oral route once daily for 4 days 06/20 completed Prescrib ed Elsewher e: No [facility]at ion: [facility] odify By: cmetosha Stallingst er DateTime : 06/16/20 13 10:22:25 AM Not Available Not Available Not Available metronida zole 500 mg tablet TAKE 1 TABLET BY MOUTH EVERY 12 HOURS 03/09 completed Not Available Not Available Not Available nystatin- triamcino lone 100,000 unit/gram -0.1 % topical ointment APPLY TOPICALL Y TO THE AFFECTED AREA TWICE DAILY FOR 5 DAYS 04/14 completed Not Available Not Available Not Available progester one 50 mg/mL intramusc ular oil inject 0.1 millilit er by intramus cular route every day 06/09 completed Prescrib ed Elsewher e: Yes Loca tion: Roxanne linda [facility] odify By: anthony thorpe DateTime : 05/13/20 12 10:00:00 AM Not Available Not Available Not Available amoxicill in 875 mg tablet TAKE 1 TABLET BY MOUTH EVERY 12 HOURS 04/14 completed Not Available Not Available Not Available alprazola m 0.25 mg tablet TAKE 1 TABLET BY MOUTH AT BEDTIME NEEDED FOR INSOMNIA active Not Available Not Available No t Available amitripty line 25 mg tablet take 1 tablet by oral route every day at bedtime 07/10 completed Prescrib ed Elsewher e: No Locat ion: Roxanne linda [facility] odify By: natividad thorpe DateTime : 05/30/20 15 09:30:00 AM Not Available Not Available Not Available betametha sone valerate 0.1 % topical cream apply by topical route every day a thin layer to the affected area(s) 08/06 completed Prescrib ed Elsewher e: No Locat ion: Roxanne linda [facility] odify By: nelson thorpe DateTime : 10/10/20 17 09:30:00 AM Not Available Not Available Not Available cephalexi n 500 mg capsule TAKE 1 CAPSULE BY MOUTH THREE TIMES DAILY FOR 7 DAYS 04/14 completed Not Available Not Available Not Available Cipro 500 mg tablet take 1 tablet (500MG) by oral route every 12 hours 07/15 completed Prescrib ed Elsewher e: No Locat ion: Roxanne linda [facility] odify By: anthony thorpe DateTime : 06/16/20 13 10:22:25 AM Not Available Not Available Not Available Glucosami ne 500 mg tablet 05/13 completed Prescrib ed Elsewher e: Yes Loca tion: Roxanne linda [facility] odify By: piero fitch DateTime : 05/12/20 12 07:54:30 PM Not Available Not Available Not Available black cohosh root extract 40 mg capsule 06/09 completed Prescrib ed Elsewher e: Yes Loca tion: Roxanne linda [facility] odify By: anthony thorpe DateTime : 05/13/20 12 10:00:00 AM Not Available Not Available Not Available Imitrex 6 mg/0.5 mL subcutane ous solution inject 0.5 millilit er by subcutan eous route once; may be repeated 1 hour after the first dose if headache pain returns or increase s in severity ; do not exceed 2 doses within 24 hours 03/09 completed Prescrib ed Elsewher e: Yes Loca tion: Roxanne linda [facility] odify By: piero fitch DateTime : 05/13/20 12 10:00:00 AM Not Available Not Available Not Available metoprolo l succinate ER 25 mg tablet,ex tended release 24 hr TAKE 1 TABLET BY MOUTH EVERY DAY active Not Available Not Available No t Available estradiol 0.01% (0.1 mg/gram) vaginal cream Apply 1g vaginall y every night at bedtime for 2 weeks, then apply 1g vaginall y 2 times per week at bedtime as maintain ance dose active Not Available Not Available No t Available methylpre dnisolone 4 mg tablets in a dose pack TK PO UTD 03/09 completed Not Available Not Available Not Available Vitamin D2 1,250 mcg (50,000 unit) capsule take 1 capsule by oral route every week 03/09 completed Prescrib ed Elsewher e: Yes Loca tion: Roxanne linda [facility] odify By: piero fitch DateTime : 05/13/20 12 10:00:00 AM Not Available Not Available Not Available magnesium 30 mg tablet 10/14 completed Prescrib ed Elsewher e: Yes Loca tion: Roxanne linda [facility] odify By: hu mazariegos DateTime : 09/24/20 16 03:00:00 PM Not Available Not Available Not Available Bactrim DS 800 mg-160 mg tablet take 1 tablet by oral route every 12 hours 03/09 completed Prescrib ed Elsewher e: No Locat ion: Roxanne linda [facility] odify By: kpanyik Saul r DateTime : 10/14/20 19 03:45:00 PM Not Available Not Available Not Available Vitamins and Minerals tablet 03/09 completed Prescrib ed Elsewher e: Yes Loca tion: Roxanne linda [facility] odify By: piero fitch DateTime : 05/13/20 12 10:00:00 AM Not Available Not Available Not Available Premarin 0.625 mg/gram vaginal cream insert (1G) by vaginal route every day every other night 05/30 completed Prescrib ed Elsewher e: No Locat ion: sAhleybee linda [facility] odify By: cmedical Encount er DateTime : 07/15/20 13 09:45:00 AM Not Available Not Available Not Available Zomig 5 mg nasal spray spray 1 spray by intranas al route once; if headache returns, the dose may be repeated after 2 hrs, not to exceed 10 mg in 24 hours 07/15 completed Prescrib ed Elsewher e: Yes Loca tion: Roxanne linda [facility] odify By: anthony modiunter DateTime : 05/12/20 12 07:54:30 PM Not Available Not Available Not Available nitrofura ntoin monohydra te/macroc rystals 100 mg capsule TAKE 1 CAPSULE BY MOUTH EVERY 12 HOURS WITH FOOD FOR 7 DAYS 10/12 completed Not Available Not Available Not Available Calcio Aminata 500 mg tablet 09/24 completed Prescrib ed Elsewher e: Yes Loca tion: Roxanne linda [facility] odify By: smcamarilysy Saul r DateTime : 05/13/20 12 10:00:00 AM Not Available Not Available Not Available Euflexxa 10 mg/mL (mw 2.4-3.6 million) intra-art icular syringe 04/14 completed Not Available Not Available Not Available B12 5,000 mcg-100 mcg sublingua l lozenge 10/10 completed Prescrib ed Elsewher e: Yes Loca tion: Roxanne linda [facility] odify By: tobias Linda ncounter DateTime : 05/13/20 12 10:00:00 AM Not Available Not Available Not Available Fish Oil 100 mg-160 mg-1,000 mg capsule 03/09 completed Prescrib ed Elsewher e: Yes [facility]oca [facility] odify By: barbara Jeffery nter DateTime : 05/12/20 07:54:30 PM Not Available Not Available Not Available vitamin B12 1,000 mcg-folic acid 400 mcg sublingua l lozenge 03/09 completed Prescrib ed Elsewher e: Yes Loca tion: [facility] odify By: hu mazariegos DateTime : 10/14/20 03:45:00 PM Not Available Not Available Not Available cannabidi ol (CBD) oral oil Take by oral route. active Not Available Not Available No t Available Vitals Date Recorded Body height Body mass index (BMI) Body weight Provider Name and Address Organization Details Last Updated DateTime 06/17/2022 154.94 cm 33.1 kg/m2 01132.66 g Mary Gómez [facility] 06/17/2022 12:39:14 Date Recorded Systolic blood pressure Diastolic blood pressure Provider Name and Address Organization Details Last Updated DateTime 06/17/2022 126 mm[Hg] 82 mm[Hg] Yumiko Hernandez [facility] [address], [place], [address], [facility] 06/17/2022 12:52:41 Date Recorded Body height Provider Name an d Address Organization Details Last Updated DateTime 08/05/2022 154.94 cm Mary Gómez [facility] 08/05/2022 10:29:12 Date Recorded Systolic blood pressure Diastolic blood pressure Provider Name and Address Organization Details Last Updated DateTime 08/05/2022 110 mm[Hg] 78 mm[Hg] Yumiko Hernandez [facility] [address], [place], [address], [facility] 08/05/2022 10:37:31 Date Recorded Body height Body mass index (BMI) Body weight Provider Name and Address Organization Details Last Updated DateTime 10/12/2022 154.94 cm 32.1 kg/m2 79418.7 g Ruba Groves [facility] 10/12/2022 09:48:43 Date Recorded Systolic blood pressure Diastolic blood pressure Provider Name and Address Organization Details Last Updated DateTime 10/12/2022 125 mm[Hg] 80 mm[Hg] Yumiko Hernandez, [facility] [address], [place], [address], [facility] 10/12/2022 09:52:02 Date Recorded Body height Body mass index (BMI) Body weight Systolic blood pressure Diastolic blood pressure Provider Name and Address Organization Details Last Updated DateTime 03/15/2024 154.94 cm 33.3 kg/m2 70057.26 g 138 mm[Hg] 82 mm[Hg] Darlene Blake [facility] 11:18:14 Date Recorded Body height Body mass index (BMI) Body weight Systolic blood pressure Diastolic blood pressure Provider Name and Address Organization Details Last Updated DateTime 04/14/2024 154.94 cm 33.1 kg/m2 90809.66 g 128 mm[Hg] 81 mm[Hg] [facility] 09:[facility]05 Social History Question Answer Notes LastModified by Organizat ion Details LastModified Time Tobacco Smoking Status Former Smoker Halima jeff, [facility] 03/09/2021 16:23:36 What Is Your Level Of Alcohol Consumption? None Information not available 06/17/2022 Are You Blind Or Do You Have Difficulty Seeing? No Information not available 06/17/2022 What Is Your Level Of Caffeine Consumption? Occasional Information not available 06/17/2022 In The 14 Days Before Symptom Onset, Have You Had Close Contact With A Laboratory-confir med COVID-19 While That Case Was Ill? No [email or web address] Information not available 10/12/2022 In The 14 Days Before Symptom Onset, Have You Had Close Contact With A Person Who Is Under Investigation For COVID-19 While That Person Was Ill? No [email or web address] Information not available 10/12/2022 Have You Been To An Area Known To Be High Risk For COVID-19? No [email or web address] Information not available 10/12/2022 Are You Deaf Or Do You Have Serious Difficulty Hearing? No Information not available 06/17/2022 What Type Of Diet Are You Following? REGULAR Information not available 06/17/2022 Do You Use Your Seat Belt Or Car Seat Routinely? Yes Information not available 06/17/2022 Do You Have Smoke And Carbon Monoxide Detectors In Your Home? Yes Information not available 06/17/2022 Do You Feel Stressed (tense, Restless, Nervous, Or Anxious, Or Unable To Sleep At Night)? [id number] Information not available 06/17/2022 Do You Use Any Illicit Or Recreational Drugs? No CBD Oil [email or web address] Information not available 10/12/2022 Do You Use Sunscreen Routinely? Yes Information not available 06/17/2022 Has Tobacco Cessation Counseling Been Provided? No [email or web address] Information not available 10/12/2022 Do You Or Have You Ever Used Any Other Forms Of Tobacco Or Nicotine? No [email or web address] Information not available 10/12/2022 Sex: Unknown Functional Status Question Answer Note LastModified by Organizat ion Details LastModified Time Do you have difficulty walking or climbing stairs? No Information not available 06/17/2022 Are you able to walk? YESWOREST Information not available 06/17/2022 Are you able to care for yourself? Yes Information not available 06/17/2022 Do you have difficulty dressing or bathing? No Information not available 06/17/2022 What is your exercise level? Occasional Information not available 06/17/2022 Mental Status None recorded. Family History Relationship Description Onset Age of this Age Resolved Age Notes LastModified by Organization Details LastModified Time Father Hypertensive disorder Not available 2021 12:39:26 Mother Malignant tumor of breast Not available 2021 12:39:26 Mother Diabetes mellitus Not available 2021 12:39:26 Mother Hypertensive disorder Not available 2021 12:39:26 Medical History Condition Response Allergies (Food, seasonal, environmental ) N Other N Drug/Latex Allergies/Reactions N Blood Transfusion N Breast Cancer N Dermatologic Disorders N Lung Disease N Defects or Inherited Disease N Breast Problem N Gestational Diabetes N Hematologic disorders N Anesthesia Complications N History of STI N Deep Vein Thrombosis N Polycystic ovary syndrome N Anxiety Disorder Y Autoimmune disease N Arthritis N Polyps N Infertility N Acid Reflux (GERD) N History of abnormal pap Y Cancer N Varicosities N Stroke N Neurologic/Epilepsy N Endometriosis N High Cholesterol N Fibromyalgia N Headaches Y Kidney Disease N Heart Problems N Thyroid Problems N Kidney or Bladder Problems Y GI Problems N Eating Disorder N Anemia N Art (IVF or FET) N Psychiatric Illness N Ovarian Cancer N Diabetes N Pulmonary (TB, Asthma) N Hepatitis/Liver Disease N No Past Medical History N Eczema N Urinary Tract Infection N Abuse/Domestic Violence N Asthma N Trauma/Violence N Depression/ depression N Heart Disease N Pre-Eclampsia N Hypertension Y Osteoporosis N Thrombophilias N Gynecological History Statement/Question Response Abnormal Pap Y Date of Last Mammogram 09/03/2021 Date of LMP 11/24/2010 STIs/STDs N HPV Vaccine N Colposcopy Current Control Method Tubal Ligat ion Age at First Child 22 If Post Menopausal, Age at Menopause 10 Date of Last Colonoscopy Most Recent Bone Density 08/11/2021 Sexually Active? Y Menses Monthly N Date of Last Pap Smear 06/17/2022 Sexual Problems? Y LMP Definite Obstetrics History GPAL:G 1 P 1 0 0 1 Type Value Full Term 1 Living 1 Total 1 Past Encounters Encounter ID Performer Location Encounter Start Date Encounter Closed Date Diagnosis/Indication Diagnosis SNOMED-CT Code Diagnosis ICD10 Code Diagnosis Note [id number] Yumiko Hernandez [facility] [address] [address] 03/09/2021 16:09:44 03/09/2021 16:46:40 Gynecologic examination 45657233 Z01.419 Take Calcium with Vitamin D 12-1500mg daily. Do monthly self breast exams. It is advised to get annual flu shot in the fall and she could obtain at [facility] or [facility] clinic. If you haven't received the Tdap vaccine in the last 10 years you should obtain one as well. Have mammogram yearly, bone density every 2-3 years and colonoscop y every 5-10 years depending on findings and history. Engage in daily exercise of low impact aerobic exercise 45-60 minutes 4-5 times weekly. Avoid tobacco and illicit drugs as well as using moderation with alcohol intake less than 1-2 8 oz beverages daily. This lifestyle behavior pattern will lead to less health conditions and longer life span. If BMI greater than 25 weight watchers or dietary consult advised. Questions have been answered. Patient appears to understand instructio ns, but if you have any further questions call or respond to this email Pap/hpv sent Consider if wnl skip pap until age 63yo then if wnl d/c per asscp unless otherwise indicated. Cologuard done 2019 per pt wnl Dexa ordered No complaints Postmenopa usal osteopenia [id number] M85.80 [id number] Mary [facility] [address] [place] [address] 05/31/2022 12:00:08 05/31/2022 16:58:55 Urinary symptoms 257813319 R39.9 Increased frequency of urination 912764678 R35.0 [id number] Yumiko Hernandez , [facility] [address] [place] [address] 06/17/2022 12:26:30 06/17/2022 12:56:06 Gynecologic examination 33158146 Z01.419 Z11.51 Take Calcium with Vitamin D 12-1500mg daily. Do monthly self breast exams. It is advised to get annual flu shot in the fall and she could obtain at [facility] or [facility] care clinic. If you haven't received the Tdap vaccine in the last 10 years you should obtain one as well. Have mammogram yearly, bone density every 2-3 years and colonoscop y every 5-10 years depending on findings and history. Engage in daily exercise of low impact aerobic exercise 45-60 minutes 4-5 times weekly. Avoid tobacco and illicit drugs as well as using moderation with alcohol intake less than 1-2 8 oz beverages daily. This lifestyle behavior pattern will lead to less health conditions and longer life span. If BMI greater than 25 weight watchers or dietary consult advised. Questions have been answered. Patient appears to understand instructio ns, but if you have any further questions call or respond to this email Pap/hpv sent STD Screen declined Genetic Screen discussed Colon Screen Cologuard 2019 Dexa Screen 2020 osteopenia Routine Labs UTD PCPMammo ordered Vaginitis 81062059 N76.0 Suspect yeast/BV on examMedica tion sent [id number] Yumiko Hernandez [facility] [address],[place] [address] 08/05/2022 10:11:21 08/05/2022 11:21:50 Urinary symptoms [id number] R39.9 Today we agreed to send urine cx since most of her sx's are related to Urinary issues.Donn kemp was wnl Rx sentCounse led on medication R/B's, Most common side effects, & use. All questions were answered to patient satisfacti on. Time spent in visit is a total of 15 mins with at least 50% of visit consisting of counseling and review of plan of care. [id number] Yumiko Hernandez [facility] [address],[place] [address] 10/12/2022 09:33:11 10/14/2022 16:40:10 Vaginitis 30240244 N76.0 Exam is wnl today but we agreed to do extended BV/Yeast swab to ensure no other issues.Her d/c looks normal.We discussed hypoestrog enic effects of postmenopa use which can also play a part is various vag changes. Follow VCG's & await results for next steps.Sondra horta. Time spent in visit is a total of 15 mins with at least 50% of visit consisting of counseling and review of plan of care. [id number] Heavenly Hassan [facility] [address],[facility] [place] [address] 03/15/2024 11:14:27 03/15/2024 14:21:32 Vaginal discharge 325936431 N89.8 Vulval irritation 424928 003 N90.89 exam today wnlvaginit is panel sentdeclin ed STI screenWe discussed hypoestrog enic effects of postmenopa use which can also play a part is various vag changes.vu lvar care guidelines discussedv eg based moisturize r routine reviewedrx sent - r/b/a reviewedwi ll update pt with vaginitis panel when available - discussed option of adding vaginal estrogenRT C for WWE or sooner if needed Time spent in visit is a total of 20 mins with at least 50% of visit consisting of counseling and review of plan of care. [id number] ROSARIO Alston [place] [address] [address] 04/14/2024 09:34:05 04/14/2024 11:03:11 Screening for malignant neoplasm of breast 024669023 Z12.39 Atrophic vulva 207211221 N90.5 We discussed hypoestrog enic effects of postmenopa use which can play a part is various vag changesman agement options reviewedrx for estradiol cream - r/b/a reviewedva ginitis panel sentSTI screen declinedve g based moisturize r routine discussedm ammogram order givenmed check in 3-4 monthsenco uraged to schedule WWE Time spent in visit is a total of 30 mins with at least 50% of visit consisting of counseling and review of plan of care. Vaginal discharge 865525 006 N89.8 Dyspareunia 48730625 N94 .10 Health Concerns Section Related Observation LastModified by Organization Detai ls LastModified Time None Recorded Concern Status LastModified by Organization Details LastModified Time None Recorded Advance Directives Directive None Recorded Payers Encounter Date Sequence Insurance Name Policy Number Policy Casillas Covered Member ID Casillas Member ID Guarantor Name 06/17/2022 1 [employer] [id number] Maria G Pugh 08/05/2022 1 [employer] [id number] Maria G Pugh 10/12/2022 1 [employer] [id number] Maria G Pugh 03/15/2024 1 [employer] [id number] Maria G Pugh 04/14/2024 1 [employer] [id number] Maria G Pugh Notes Date Note Type Note Provider Name and Address Organization Details Recorded Time 2 text/html Annual Undercutter Post-MenopausalReporte d bypatient.Menopausal Symptoms:no menopausal symptoms; normal vaginal lubrication Vaginal Bleeding:history of menopause having occurred; no history of post menopausal bleeding Urinary Symptoms:no hematuria; no incontinence; no nocturia; no urinary frequency Vulva:no genital lesion; no vulvar atrophy Vagina:no vaginal atrophy;foul-smelling; white;yellow-green, thick;vaginal itching Breast:no breast lump; no nipple discharge; no breast pain Sexual Complaints:no sexual complaints Psychological Symptoms:no depression; no anxiety Preventive Measures:encourage regular mammograms starting age 40; encourage self breast examination; encourage regular exercise; encourage no tobacco use; needs to schedule mammogram; history of recent colonoscopy Yumiko Hernandez [facility] [address], [place], [address], [facility] 06/17/2022 12:52:59 2 text/html Here today for urinary sx's which include urinary frequency & urgency x 5 days.Neg vag d/c, itching, odorNeg GI issuesNeg sexual partner Yumiko Hernandez [facility] [address], [place], [address], [facility] 08/05/2022 10:40:01 2 text/html Vaginal/Vulvar ProblemReported bypatient.Notes:Here today with concerns of white thick clumpy d/c w/o odor, itching, irritation of vulvovaginal area.She is rarely SA with spouse.Neg pelvic painNeg sx'sNeg GI sx'sNeg N/V/F/D/C Yumiko Hernandez [facility] [address], [place], [address], [facility] 10/12/2022 10:03:29 4 text/html 63yo [id number] for evaluation of vaginal dischargeyellow discharge, slight itching/irritationnoti mateus symptoms over the past monthtook a fluconazole 3 weeks ago, symptoms improved but did not resolve completely. postmenopausal since 48rarely SA with partnerneg urinary symptomsneg pelvic painneg n/v/f ROSARIO Alston [address], [place], [address], [place] [facility] 03/15/2024 14:16:31 4 text/html 63yo [id number] for evaluation of vaginal discharge and vulvar itchingtx'd for BV last month - symptoms seemed to improve but does not feel like they went away completelydryness with IC - rarely SA d/t thisno new partnersclear/white dischargevulvar itching/burning neg odorsneg pelvic painneg n/v/fuses water only to cleanse the vulva (no scented soaps/products/wipes) denies h/o DVT or BClast mammogram 11/2022 ROSARIO Alston [address], [place], [address], [place] [facility] 04/14/2024 10:48:50 OBGyn Episode Ob Episode Information Episode Created Date Number of Fetuses Patient Bloodtype Patient rh Status Prepregnancy Weight lbs Domestic Partner Domestic Partner Phone Father Name [employer] Sales Representative Status 03/09/20 21 1 CLOSED Fetus Data First Name Last Name Admitted to NICU Weight (g) Sex Living Outcome Pediatric Complications Fetus ID Race Codes Race Delivery Type 3912.23 1 F Full Term [id number] Primary Rene Calculation Initial Rene Date Initial Exam Date Initial Exam Provider Initial Ultrasound Date Last Menstrual Period Date Ultra Sound Weeks Gestation 0 Eighteen To Twenty Week Rene Update Ultra Sound Date Fundal Height At Umbil Quickening Date Ultra Sound Latest Weeks Gestation Final Rene Confirmed By Final Rene Confirmed Date Final Rene Date Ultra Sound Latest Days Gestation 0 0 Menstrual History Last Menstrual Date Menses Monthly On Bcp Conception Prior Menses Frequency Hcg Plus Date Menarche Onset Age Delivery Information Delivery Date Delivery Type Labor Anesthesia Weeks Gestation Incision Type Labor Labor Length Hrs Delivered By Post Complications Tubal Sterilization Discharge Date Comments 2 40 distress Discharge Information Feeding Method Contraceptive Method Maternal HG B and HCT Levels
--- OUTSIDE RECORDS SUMMARY | 2025-01-12 01:02 | XMS_ITS ---
Author Organization [facility] Address [address] [place], [place] [id number] Care Team Providers Care Cement Paver Name Role Phone XAVIER LOCKETT Unavailable [phone] Jose Laraa Unavailable Unavailable Allergies No Known Allergies REASON FOR VISIT Lt 5th toe fol up, The patient tolerated the oral antibiotic well. The toe is no longer red and painful. The toe spacer is helping too Medications Medication SIG (Take, Route, Frequency, Duration) Notes Start Date End Date Status ALPRAZolam 0.25 MG Oral Tablet ORAL alprazolam 0.25 MG Oral TabletOriginal Medicationalprazolam 0.25 MG Oral Tablet *Reorder from National Institutes of Health (NIH) for eRx and Interaction Alerts* 04/24/2020 Active Metoprolol Tartrate 25 MG Oral Tablet ORAL metoprolol tartrate 25 MG Oral TabletOriginal Medicationmetoprolol tartrate 25 MG Oral Tablet *Reorder from National Institutes of Health (NIH) for eRx and Interaction Alerts* 04/24/2020 Active Medrol Dosepak ORAL Medrol DosepakOr iginal MedicationMedrol Dosepak *Reorder from National Institutes of Health (NIH) for eRx and Interaction Alerts* 04/24/2020 Active Cephalexin 500 MG 1 capsule Orally three times a day for 7 days Active sumatriptan 100 MG Oral Tablet ORAL sumatriptan 100 MG Oral TabletOriginal Medicationsumatriptan 100 MG Oral Tablet *Reorder from National Institutes of Health (NIH) for eRx and Interaction Alerts* 04/24/2020 Active Vital Signs Height 61.00 in 09/17/2023 Weight 180 lbs 09/17/2023 BMI 34.01 kg/m2 09/17/2023 Height-cm 154.94 cm 09/17/2023 Weight-kg 81.65 kg 09/17/2023 Encounters Encounter Location Date Provider Diagnosis [facility] [place] [address] [facility] [address] [place], [place] [id number] 09/17/2023 XAVIER CATHRYN Cellulitis of left toe L03.032 and Pain in left toe(s) M79.675 Assessments Encounter Date Diagnosis (ICD Code) Assessment Notes Treatment Notes Treatment Clinical Notes Section Notes 09/17/2023 Cellulitis of left toe (ICD-10 - L03.032) ContinuePadding: Application of accomodative padding to offload pressure from area. NO additional antibiotic is needed. Infection Protocol: Patient instructed to observe foot for signs and symptoms of infection, including but not limited to: increased redness and warmth to the area, increased drainage from the area, foul odor, and/or presence of fever/chills/naus ea/vomiting. If patient experiences any of the above they are to call the office immediately, if someone is not present in the office then proceed to the nearest ER. 09/17/2023 Pain in left toe(s) (ICD-10 - M79.675) Plan Of Treatment Medication Medication Name Sig Start Date Stop Date Notes Cephalexin 500 MG 1 capsule Orally thr ee times a day for 7 days Treatment Notes Assessment Notes Cellulitis of left toe ContinuePadding: Application of accomodative padding to offload pressure from area. NO additional antibiotic is needed. Infection Protocol: Patient instructed to observe foot for signs and symptoms of infection, including but not limited to: increased redness and warmth to the area, increased drainage from the area, foul odor, and/or presence of fever/chills/nausea/vomiting. If patient experiences any of the above they are to call the office immediately, if someone is not present in the office then proceed to the nearest ER. Next Appt Details Follow Up: prn, Reason: Progress Notes * DEBBI PÉREZDOB: [birth year] (63 yo F)Acc No.[id number]:09/17/2023 Patient: DEBBI MADRIGAL Provider: Melissa Lockett DPM :1960 A ge:63 Y S ex:Female Date:09/17/2023 Address:[address] [place] [address] Subjective: * Chief Complaints: * 1 . Lt 5th toe fol up. 2. The patient tolerated the oral antibiotic well. The toe is no longer red and painful. The toe spacer is helping too. * HPI: H PI: Follow Up Visit P kelli presents for follow-up visit for left 5th toe patient states Keflex is doing great working patient has no pain and the padding is helping a lot of Patient states their problem is, improving., M A: MJ, . * ROS: G eneral / Constitutional: Patient [...] Medicationalprazolam 0.25 MG Oral Tablet *Reorder from [facility] for eRx and Interaction Alerts*, Taking Metoprolol Tartrate 25 MG Oral Tablet ORAL , Notes to Pharmacist: metoprolol tartrate 25 MG Oral TabletOriginal Medicationmetoprolol tartrate 25 MG Oral Tablet *Reorder from [facility] for eRx and Interaction Alerts*, Taking Medrol Dosepak ORAL , Notes to Pharmacist: Medrol DosepakOriginal MedicationMedrol Dosepak *Reorder from [facility] for eRx and Interaction Alerts*, Taking sumatriptan 100 MG Oral Tablet ORAL , Notes to Pharmacist: sumatriptan 100 MG Oral TabletOriginal Medicationsumatriptan 100 MG Oral Tablet *Reorder from [facility] for eRx and Interaction Alerts*, Taking Cephalexin 500 MG Capsule 1 capsule Orally three times a day , stop date 09/17/2023 * Allergies: N .K.D.A. Objective: * Vitals: W t:180lbs, Wt-k.65 kg, Ht: 61.00 in, Ht-cm: 154.94 cm, BMI:34.01Index, Body Surface Area: 1.87. * Examination: C onstitutional: Constitutional T he patient is awake, alert, well developed, well groomed and well nourished.. D ermatologic: Hypertrophic / hyperkeratotic lesion: T he wound between the left 4th and 5th digit has resolved. There is no erythema, no calor, no break in the skin.? V ascular: Dorsalis pedis pulse: 2 /4, bilateral. Posterior tibial pulse: 2 /4, bilaterally. Capillary refill: l ess than 3 seconds. Edema: N o edema, bilateral. N eurologic: Gross sensation G ross sensation is intact to light touch..? M usculoskeletal: Muscle Strength M uscle strength is 5/5 in regards to dorsiflexion, plantarflexion, inversion, and eversion in bilateral lower extremities.. Foot Structure T he foot structure is noted to be, planus, left, There is calcaneus valgus noted, left, There is forefoot varus noted, left. ? Assessment: * Assessment: 1. C ellulitis of left toe - L03.032 (Primary) 2 . P ain in left toe(s) - M79.675 Plan: * Treatment: * Follow Up: p rn * Billing Information: * Visit Code: 94119 Office Visit, Est Pt., Level 2. 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 There is no erythema, no calor, no break in the skin Neurologic Gross sensation Gross sensation is intact to light touch. Vascular Dorsalis pedis pulse: 2/4, bilateral Edema: No edema, bilateral Capillary refill: less than 3 seconds Posterior tibial pulse: 2/4, bilaterally Musculoskeletal Muscle Strength Muscle strength is 5/5 in regards to dorsiflexion, plantarflexion, inversion, and eversion in bilateral lower extremities. Foot Structure The foot structure i s noted to be, planus, left, There is calcaneus valgus noted, left, There is forefoot varus noted, left Constitutional Constitutional The patient is a wake, alert, well developed, well groomed and well nourished.
[2025-01-12 09:33] VITALS: BP 152/84; PULSE 80; RESP 18; TEMP 36.6; O2SAT 97; BMI 32.3
[2025-01-12] MEDS: LACTATED RINGERS 1,000 ML 150 ML IV CONT (09:41)
--- NOTE | 2025-01-12 10:26 | PM.IMHP ---
H&P: HPI History of Present Illness Date/Time: 01/12/25 10:26 Chief Complaint: positive Cologuard test. Narrative: This is the patient's first colonoscopy. She was found to have a Cologuard positive test. There are no GI symptoms Her mother had colorectal cancer at age 91. Review of Systems Review of Systems: All systems reviewed & are unremarkable except as noted in HPI and below PMFSH Past Medical History Medical History Anxiety Hypertension Migraine Family History Family History (Updated 04/16/23 @ 09:39 by Tamar Lockhart CMA) Mother Heart disease Diabetes mellitus Father No problems noted. Social History Social History (Updated 04/16/23 @ 09:48 by Tamar Lockhart CMA) Smoking status: Never smoker Second hand tobacco smoke exposure: No Alcohol intake: current Drinks per week: 2 Alcohol use details: socially Substance use: never Substance use type: does not use Lack of Transportation: No Lack of Food: Never True Current Housing: I Have Housing Concerned About Future Housing: No Difficulty Paying Gas/Electric Bills: No Difficulty Paying for Meds: No Currently Unemployed: No Education: High School Diploma/GED Difficulty w/ Childcare or Family Care: No Living arrangements: with family Spiritual care concerns: No Meds Home Medications and Allergies Home Medications ?Medication ?Instructions ?Recorded ?Confirmed ?Type sumatriptan succinate 100 mg tablet See Rx Instructions PO .COMPLEX #9 11/13/21 01/04/25 Rx tabs Saccharomyces boulardii 250 mg 250 mg PO BID 04/16/23 01/12/25 History capsule (Digest Probiotic (S.boulardii)) calcium 600 mg (as 1 cap PO DAILY 04/16/23 01/12/25 History carbonate)-vitamin D3 12.5 mcg (500 unit) capsule (Calcium with Vit D3) vitamin E (dl, acetate) 90 mg (200 90 mg PO DAILY 04/16/23 01/12/25 History unit) capsule alprazolam 0.25 mg tablet 0.25 mg PO HS 01/31/24 01/12/25 History metoprolol succinate 25 mg 25 mg PO DAILY 01/31/24 01/12/25 History tablet,extended release 24 hr Allergies Allergy/AdvReac Type Severity Reaction Status Date / Time No Known Allergies Allergy Mild Verified 01/12/25 09:32 Vital Signs Vital Signs - 24 hr 01/12/25 09:33 Temperature 98 F Pulse Rate 80 Respiratory Rate 18 Blood Pressure 152/84 H Pulse Oximetry 97 Oxygen Delivery Room Air Exam Const: General: cooperative and healthy appearing Resp: Effort & Inspection: normal respiratory effort and able to speak in complete sentences Auscultation: clear to auscultation bilaterally Cardio: Rate: regular rate Rhythm: regular rhythm GI: Inspection: normal to inspection GI Palp: No No hepatosplenomegaly present Auscultation: normal bowel sounds Rectal Exam: deferred Skin: General skin exam: normal color Psych: Appearance: grossly normal Mental Status: mental status grossly normal Assessment and Plan Assessment and plan (1) Positive colorectal cancer screening using Cologuard test: Code(s): R19.5 - Other fecal abnormalities Status: Acute Assessment and Plan: The patient is deemed a good candidate for the procedure. Consent signed. Will proceed.
--- NOTE | 2025-01-12 10:35 | P.PNAN_ITS ---
Anes - Initial Pre Proc Eval Procedure: Operation Date: 01/12/25 11:00 Proposed Procedures p Screening Colonoscopy - Hilton Simon MD Date/Time: 01/12/25 10:35 Surgeon: Hilton Simon MD Pre Op Diagnosis: Screening Patient Data Age: 64 Gender: F Height: 1.55 m Weight: 77.8 kg Last Vital Signs Temp 98 F 01/12/25 09:33 Pulse 80 01/12/25 09:33 Resp 18 01/12/25 09:33 BP 152/84 H 01/12/25 09:33 Pulse Ox 97 01/12/25 09:33 O2 Del Method Room Air 01/12/25 09:33 Allergies Allergy/AdvReac Type Severity Reaction Status Date / Time No Known Allergies Allergy Mild Verified 01/12/25 09:32 Home Medications ?Medication ?Instructions ?Recorded ?Confirmed ?Type sumatriptan succinate 100 mg tablet See Rx Instructions PO .COMPLEX #9 11/13/21 01/04/25 Rx tabs Saccharomyces boulardii 250 mg 250 mg PO BID 04/16/23 01/12/25 History capsule (Digest Probiotic (S.boulardii)) calcium 600 mg (as 1 cap PO DAILY 04/16/23 01/12/25 History carbonate)-vitamin D3 12.5 mcg (500 unit) capsule (Calcium with Vit D3) vitamin E (dl, acetate) 90 mg (200 90 mg PO DAILY 04/16/23 01/12/25 History unit) capsule alprazolam 0.25 mg tablet 0.25 mg PO HS 01/31/24 01/12/25 History metoprolol succinate 25 mg 25 mg PO DAILY 01/31/24 01/12/25 History tablet,extended release 24 hr Patient hx anesthesia problems: none Family hx anesthesia problems: none Results Review: All pre-operative results and documents have been reviewed as part of the pre- operative evaluation. [facility] Past Medical History Medical History Migraine Hypertension Anxiety Family History Family History Mother Heart disease Diabetes mellitus Father No problems noted. Social History Social History Smoking status: Never smoker Second hand tobacco smoke exposure: No Alcohol intake: current Drinks per week: 2 Alcohol use details: socially Substance use: never Substance use type: does not use Lack of Transportation: No Lack of Food: Never True Current Housing: I Have Housing Concerned About Future Housing: No Difficulty Paying Gas/Electric Bills: No Difficulty Paying for Meds: No Currently Unemployed: No Education: High School Diploma/GED Difficulty w/ Childcare or Family Care: No Living arrangements: with family Spiritual care concerns: No Anes - Eval Final PreProcedure Day of Procedure 01/12/25 10:35 Patient weight: obese Lungs: normal air movement Airway: Mallampati scale class II Neurological: alert and oriented Last oral intake: >/= 8 hours ASA classification: II Emergent: no Anesthetic plan: proceed Anesthesia type and monitoring: general GIVS and standard monitoring Results Review: All pre-operative results and documents have been reviewed as part of the pre- operative evaluation. HTN, migranes, b sara taken last pm. Informed Consent: The patient's anesthetic plan and its attendant risks and benefits were discussed with the patient/family/POA. Questions were solicited and answers provided to the satisfaction of the patient/family/POA.
[2025-01-12 11:00] VITALS: BP 129/69; PULSE 67; RESP 18; O2SAT 97
[2025-01-12 11:10] VITALS: BP 135/70; PULSE 65; RESP 18; O2SAT 98
[2025-01-12 11:20] VITALS: BP 146/74; PULSE 58; RESP 18; O2SAT 98
== END 2025-01-12 11:52 | disposition home or self-care (01) ==
PROVIDERS: PCP Internal Medicine; Visit Provider Internal Medicine Gastroenterology
PROC: 0DJD8ZZ Inspection of Lower Intestinal Tract, Via Natural or Artificial Opening Endoscopic (ICD-10-PCS; CPT 45378; principal; 2025-01-12 11:00)
DX: D12.0 Benign neoplasm of cecum (principal); K64.8 Other hemorrhoids; K57.30 Diverticulosis of large intestine without perforation or abscess without bleeding; D17.5 Benign lipomatous neoplasm of intra-abdominal organs; I10 Essential (primary) hypertension; F41.9 Anxiety disorder, unspecified; E66.9 Obesity, unspecified; Z68.32 Body mass index [BMI] 32.0-32.9, adult; Z82.49 Family history of ischemic heart disease and other diseases of the circulatory system
CPT/HCPCS: 45385; 88305; J2704; J7120

== ENCOUNTER 2025-09-27 08:14 | Outpatient (CLI) | payer MEDICARE, OTHER, SELFPAY ==
--- NOTE | ~2025-09-27 | DEXA_ITS ---
Bone Density Report Name: DEBBI PÉREZ Age: 65 Sex: Female Ethnicity: White Date of : 1960 Indication: postmenopausal; screening for osteoporosis; Referring Provider: Dave, Diamond Gordon Study: Bone densitometry was performed. Exam Date: September 27, 2025 Accession number: [id number] Bone Density: Region BMD T-score Z-score Classification AP Spine(L1-L4) 1.239 1.7 3.7 Normal Femoral Neck (Left) 0.622 -2.0 -0.4 Osteopenia Total Hip (Left) 0.751 -1.6 -0.2 Osteopenia World Health Organization criteria for BMD impression classify patients as: Normal (T-score at or above -1.0), Osteopenia (T-score between -1.0 and -2.5), or Osteoporosis (T-score at or below -2.5). 10-year Fracture Risk(1): Major Osteoporotic Fracture 11% Hip Fracture 1.8% Reported Risk Factors: [place] (), Neck BMD=0.622, BMI=32.8 (1) FRAX(R) Version 3.08. Fracture probability calculated for an untreated patient. Fracture probability may be lower if the patient has received treatment. Previous Exams: -- Region Exam Age BMD T-score BMD Change BMD Change Date g/cm2 vs Baseline vs Previous -- AP Spine (L1-L4) 09/27/2025 65 1.239 1.7 7.1%# -5.1%# 09/03/2021 61 1.306 2.4 12.9%* 12.9%* 12/28/2010 50 1.157 1.0 Total Hip(Left) 09/27/2025 65 0.751 -1.6 -24.3%* -14.2%* 09/03/2021 61 0.875 -0.5 -11.8%* -11.8%* 12/28/2010 50 0.992 0.4 -- *Denotes significance at 95% confidence level, LSC for AP Spine = 0.022 g/cm2, LSC for Total Hip = 0.027 g/cm2 # Denotes dissimilar scan types or analysis methods Clinical Information Provided by Patient: Has used the following medications: Vitamin D, Calcium Patient maximum height was 62 Menopause Age: 53 No regular weight bearing exercise Drinks caffeinated beverages Onset of menses at age 10 Number of children 1 Impression: The patient has low bone mass, based on the Left Femoral Neck T-score. The patient has an estimated ten-year risk of hip fracture of 1.8% and an estimated ten-year risk of major fracture of 11%, based on the WHO FRAX algorithm. The BMD for the Total Hip(Left) decreased, changing by -14.2% since the last DXA exam. Discussion: BONE DENSITY IS LOW AT ONE OR MORE SKELETAL SITES. This patient's lowest T-score is low at one or more skeletal sites. It meets the World Health Organization's (WHO) criteria for ?low bone mass? (T-score between -1.0 and -2.5). The patient's 10-year risk of fracture as calculated by FRAX is less than the threshold where pharmacological therapy is recommended by the National Osteoporosis Foundation (NOF). However, all treatment decisions require clinical judgment and consideration of individual patient factors, including patient preferences, comorbidities, previous drug use, risk factors not captured in the FRAX model (e.g., frailty, falls, vitamin D deficiency, increased bone turnover, interval significant decline in bone density) and possible under or overestimation of fracture risk by FRAX. The patient should follow a healthful lifestyle (good nutrition with adequate calcium and vitamin D, and appropriate weight-bearing exercise). Follow-Up: Consider repeating this study in 2 years to reassess this patient's status, or sooner if there is some new clinical indication. Reported by: JOHANA on 09/27/2025 8:35:00 AM. Reviewed, dictated and finalized at location A.
== END 2025-09-27 08:15 | disposition home or self-care (01) ==
LOC: MICIMG 08:16
PROVIDERS: PCP Internal Medicine; Visit Provider Internal Medicine
DX: Z78.0 Asymptomatic menopausal state (principal); M85.852 Other specified disorders of bone density and structure, left thigh
CPT/HCPCS: 77080